=== PATIENT | female | born 1950 | race Caucasian/White ===

== ENCOUNTER 2018-04-16 12:28 | Emergency (ER) | payer OTHER, MEDICARE, SELFPAY ==
[~2018-04-16] VITALS: Ht 149.9 cm; Wt 54.4 kg
[~2018-04-16 12:28] MED LIST: Cheratussin AC118 ML PO; Crutch1 EACH MISC; GABA300 PO; GABA400 PO; LIDOCAINE HCL5 ML; Mucinex600 MG PO; NAPR550 PO; Norco 5-325 Ta1 EACH PO; PROC5 PO; Percocet 5-3251 EACH PO; Prednisone20 MG PO
[2018-04-16] MEDS ORDERED: ASPI325EC PO (13:06)
[2018-04-16] MEDS ORDERED: FISH OIL 1,0001 EAC2 PO (13:07)
== END 2018-04-16 15:32 | disposition home or self-care (01) ==
LOC: ER 12:28
DX: S00.83XA Contusion of other part of head, initial encounter (principal); I10 Essential (primary) hypertension; F17.200 Nicotine dependence, unspecified, uncomplicated; Z79.899 Other long term (current) drug therapy; Z79.82 Long term (current) use of aspirin; W22.8XXA Striking against or struck by other objects, initial encounter
CPT/HCPCS: 70450; 99284

== ENCOUNTER → 2019-10-04 | Outpatient (CLI) | payer MEDICARE ==
[~2019-10-04] MED LIST changes: +ASPI325EC PO; +FISH OIL 1,0001 EAC2 PO
== END | disposition home or self-care (01) ==
LOC: LAB 14:50 → LAB SHORT 14:50
DX: L08.9 Local infection of the skin and subcutaneous tissue, unspecified (principal)
CPT/HCPCS: 87070; 87077; 87147; 87186; 87205

== ENCOUNTER 2021-04-09 03:24 | Observation (INO) | payer MEDICARE ==
[~2021-04-09] VITALS: Ht 149.9 cm; Wt 49.9 kg
[2021-04-09 04:57] LABS: SARS-Cov-2 (COVID-19) PCR, MMC NEGATIVE (NEGATIVE)
--- NOTE | 2021-04-09 06:14 | NUR ---
04/09/21 0614 Velia Henson History, Chart, Medications and Allergies reviewed before start of procedure. Patient confirms NPO status and agrees with scheduled surgery. 3-LEAD EKG REVIEWED WITH PHYSICIAN PRIOR TO START OF PROCEDURE. MONITOR INTACT WITH CONTINUOUS PULSE OXIMETRY AND INTERMITTENT BP. PATIENT DETERMINED TO BE ASA APPROPRIATE FOR PROPOFOL SEDATION PRIOR TO START OF PROCEDURE BY . Bite Block Placed AND REMOVED AT END OF CASE. PER , NO ANESTHESIA CONSULT DONE.
--- NOTE | 2021-04-09 09:41 | NUR ---
DR TABARES AT BEDSIDE SPEAKING TO PT. PT SITTING UP, TAKING SIPS OF WATER.
--- NOTE | 2021-04-09 10:06 | NUR ---
Discharge instructions reviewed with patient. Patient verbalizes understanding. Copy given to patient to take home. PT TOLERATING SIPS OF WATER, PAIN IN THROAT "THE SAME" POST TYLENOL GIVEN. Discharged via wheelchair to private car for ride home. PT VOIDED BEFORE LEAVING.
--- NOTE | 2021-04-09 10:34 | NUR ---
04/09/21 1034 Velia Henson ATTEMPTED FOREIGN BODY REMOVEAL IN ENDO ROOM1, UNABLE TO DO, ANESTHESIA CONSULT DONE PLAN FOR GENERAL. TO OR. CARE BY , SEE PAPER ANESTHESIA RECORD. PT BP WERE ELEVATED T/O CASE. RN , CALLED WHEN CASE OVER AND CHATTE WITH PT'S . ENCOURGED THEM TO F/U WITH PCP FOR HYPERTENSION. MONITOR INTACT WITH CONTINUOUS PULSE OXIMETRY AND INTERMITTENT BP. History, Chart, Medications and Allergies reviewed before start of procedure. Bite Block Placed AND REMOVED AT END OF CASE. #20 SAVORY DILATOR USED.
== END 2021-04-09 11:00 | disposition home or self-care (01) ==
LOC: ER 03:24 → SURS 03:25 → ER 05:43 → SURS 11:00
PROVIDERS: Emergency Medicine; ADMIT Internal Medicine Gastroenterology
DX: T18.128A Food in esophagus causing other injury, initial encounter (principal); Q39.4 Esophageal web; F17.210 Nicotine dependence, cigarettes, uncomplicated; X58.XXXA Exposure to other specified factors, initial encounter; Z96.612 Presence of left artificial shoulder joint; Z98.1 Arthrodesis status; Z86.12 Personal history of poliomyelitis; Z20.822 Contact with and (suspected) exposure to COVID-19
CPT/HCPCS: 96374-59; 99285-25; A9270; J0360; J1100; J1610; J2405; J2704; J7120; U0004

== ENCOUNTER 2021-06-02 13:00 | Emergency (ER) | payer MEDICARE ==
[~2021-06-02] VITALS: Ht 147.3 cm; Wt 50.8 kg
[2021-06-02 13:59] LABS: Hematocrit 43.5 % (33.0-51.0); Mean Corpuscular HGB 32.8 pg (26.0-34.0); Mean Corpuscular HGB Conc 34.5 g/dL (31.5-36.5); Mean Corpuscular Volume 95 fL (80-100); Mean Platelet Volume 9.8 fL (9.1-12.4); Platelet Count 316 K/mm3 (150-400); RDW Coefficient Variation 13.9 % (11.7-14.2); RDW Standard Deviation 48.2 fL (35.1-46.3); Red Blood Cell Count 4.57 M/mm3 (3.80-5.20); White Blood Cell Count 8.84 K/mm3 (4.00-11.30)
[2021-06-02 14:19] LABS: Alanine Aminotransfer (ALT/SGP 22 U/L (12-78); Albumin, Blood 3.8 g/dL (3.4-5.0); Albumin/Globulin Ratio 1.1 (0.8-1.8); Alk Phos 98 U/L (50-136); Anion Gap 4 mmol/L (6-16); Aspartate Aminotrans (AST/SGOT 12 U/L (12-37); Bilirubin, Total 0.5 mg/dL (0.1-1.0); Blood Urea Nitrogen 11 mg/dL (8-24); Bun/Creatinine Ratio 15.2 (12.0-20.0); CO2, Blood 28 mmol/L (21-32); Calcium, Blood 9.1 mg/dL (8.5-10.1); Chloride, Blood 109 mmol/L (98-108); Creatinine, Blood 0.72 mg/dL (0.40-1.00); Globulin, Blood 3.5 g/dL (2.2-4.0); Glomerular Filtration Rate >60 (60-); Glucose, Blood 115 mg/dL (70-99); Potassium, Blood 3.4 mmol/L (3.5-5.5); Sodium, Blood 141 mmol/L (136-145); Total Protein, Blood 7.3 g/dL (6.4-8.2)
[2021-06-02 14:34] LABS: BASOPHILS PERCENT MAN 0 % (0-2); EOSINOPHILS ABSOLUTE MAN 0.08 K/mm3 (0.00-0.68); EOSINOPHILS PERCENT MAN 1 % (0-6); LYMPHOCYTES % ATYPICAL MANUAL 1 % (0-0); LYMPHOCYTES ABSOLUTE MAN 3.71 K/mm3 (0.84-5.20); LYMPHOCYTES PERCENT MAN 41 % (21-46); MONOCYTES ABSOLUTE MAN 0.61 K/mm3 (0.16-1.47); MONOCYTES PERCENT MAN 7 % (4-13); NEUTROPHILS ABSOLUTE MAN 4.42 K/mm3 (1.96-9.15); SEG NEUTROPHILS PERCENT MAN 50 % (41-73); TOTAL CELLS COUNTED 100
== END 2021-06-02 16:17 | disposition home or self-care (01) ==
LOC: ER 13:00
PROVIDERS: Physician Assistant
DX: M54.12 Radiculopathy, cervical region (principal); F17.200 Nicotine dependence, unspecified, uncomplicated
CPT/HCPCS: 36415; 70450; 80053; 85025; 93005; 93010; 96374; 99284-25; J1885

== ENCOUNTER 2021-07-15 10:57 | Inpatient (IN) | payer MEDICARE ==
[~2021-07-15] VITALS: Ht 147.3 cm; Wt 51.0 kg
[2021-07-15 11:44] LABS: BASOPHILS ABSOLUTE AUTO 0.01 K/mm3 (0.00-0.23); BASOPHILS PERCENT AUTO 0 % (0-2); EOSINOPHILS PERCENT AUTO 0 % (0-6); Hematocrit 40.3 % (33.0-51.0); Hemoglobin 14.3 g/dL (11.5-16.0); IMMATURE GRAN ABSOLUTE AUTO 0.01 K/mm3 (0.00-0.10); IMMATURE GRAN PERCENT AUTO 0 % (0-1); LYMPHOCYTES ABSOLUTE AUTO 0.64 K/mm3 (0.84-5.20); LYMPHOCYTES PERCENT AUTO 15 % (21-46); MONOCYTES ABSOLUTE AUTO 0.44 K/mm3 (0.16-1.47); MONOCYTES PERCENT AUTO 11 % (4-13); Mean Corpuscular HGB 32.3 pg (26.0-34.0); Mean Corpuscular HGB Conc 35.5 g/dL (31.5-36.5); Mean Corpuscular Volume 91 fL (80-100); Mean Platelet Volume 11.6 fL (9.1-12.4); NEUTROPHILS ABSOLUTE AUTO 3.07 K/mm3 (1.96-9.15); NEUTROPHILS PERCENT AUTO 74 % (41-73); Platelet Count 146 K/mm3 (150-400); RDW Coefficient Variation 13.2 % (11.7-14.2); RDW Standard Deviation 44.2 fL (35.1-46.3); Red Blood Cell Count 4.43 M/mm3 (3.80-5.20); White Blood Cell Count 4.17 K/mm3 (4.00-11.30)
[2021-07-15 11:59] LABS: Alanine Aminotransfer (ALT/SGP 27 U/L (12-78); Albumin, Blood 2.9 g/dL (3.4-5.0); Albumin/Globulin Ratio 0.8 (0.8-1.8); Alk Phos 68 U/L (50-136); Anion Gap 11 mmol/L (6-16); Aspartate Aminotrans (AST/SGOT 43 U/L (12-37); Bilirubin, Total 0.5 mg/dL (0.1-1.0); Blood Urea Nitrogen 15 mg/dL (8-24); Bun/Creatinine Ratio 22.1 (12.0-20.0); CO2, Blood 22 mmol/L (21-32); Calcium, Blood 8.2 mg/dL (8.5-10.1); Chloride, Blood 99 mmol/L (98-108); Creatinine, Blood 0.68 mg/dL (0.40-1.00); Globulin, Blood 3.5 g/dL (2.2-4.0); Glomerular Filtration Rate >60 (60-); Glucose, Blood 109 mg/dL (70-99); Magnesium, Blood 1.9 mg/dL (1.6-2.4); Potassium, Blood 4.1 mmol/L (3.5-5.5); Sodium, Blood 132 mmol/L (136-145); Total Protein, Blood 6.4 g/dL (6.4-8.2); Troponin I <0.015 ng/mL (0.000-0.040)
[2021-07-16 04:39] LABS: BASOPHILS PERCENT AUTO 0 % (0-2); EOSINOPHILS PERCENT AUTO 0 % (0-6); Hematocrit 36.6 % (33.0-51.0); Hemoglobin 13.1 g/dL (11.5-16.0); IMMATURE GRAN ABSOLUTE AUTO 0.02 K/mm3 (0.00-0.10); IMMATURE GRAN PERCENT AUTO 0 % (0-1); LYMPHOCYTES ABSOLUTE AUTO 0.93 K/mm3 (0.84-5.20); LYMPHOCYTES PERCENT AUTO 17 % (21-46); MONOCYTES ABSOLUTE AUTO 0.26 K/mm3 (0.16-1.47); MONOCYTES PERCENT AUTO 5 % (4-13); Mean Corpuscular HGB 32.3 pg (26.0-34.0); Mean Corpuscular HGB Conc 35.8 g/dL (31.5-36.5); Mean Corpuscular Volume 90 fL (80-100); Mean Platelet Volume 10.8 fL (9.1-12.4); NEUTROPHILS ABSOLUTE AUTO 4.14 K/mm3 (1.96-9.15); NEUTROPHILS PERCENT AUTO 77 % (41-73); Platelet Count 153 K/mm3 (150-400); RDW Standard Deviation 43.5 fL (35.1-46.3); Red Blood Cell Count 4.05 M/mm3 (3.80-5.20); White Blood Cell Count 5.35 K/mm3 (4.00-11.30)
[2021-07-16 05:28] LABS: Alanine Aminotransfer (ALT/SGP 24 U/L (12-78); Albumin, Blood 2.5 g/dL (3.4-5.0); Albumin/Globulin Ratio 0.8 (0.8-1.8); Alk Phos 55 U/L (50-136); Anion Gap 10 mmol/L (6-16); Aspartate Aminotrans (AST/SGOT 24 U/L (12-37); Bilirubin, Total 0.2 mg/dL (0.1-1.0); Blood Urea Nitrogen 10 mg/dL (8-24); Bun/Creatinine Ratio 18.1 (12.0-20.0); CO2, Blood 21 mmol/L (21-32); Calcium, Blood 7.3 mg/dL (8.5-10.1); Chloride, Blood 103 mmol/L (98-108); Creatinine, Blood 0.55 mg/dL (0.40-1.00); Glomerular Filtration Rate >60 (60-); Glucose, Blood 95 mg/dL (70-99); Magnesium, Blood 2.1 mg/dL (1.6-2.4); Potassium, Blood 3.1 mmol/L (3.5-5.5); Sodium, Blood 134 mmol/L (136-145); Total Protein, Blood 5.5 g/dL (6.4-8.2)
--- NOTE | 2021-07-16 07:19 | NUR ---
SHIFT SUMMARY PATIENT IS RESTING IN BED COMFORTABLY. BED IS IN LOW POSITION. BED EXIT ALARM IS ON. CALL LIGHT IS IN REACH. PATIENT WAS FEBRILE SEE EMAR FOR INTERVENTION. DILTIAZEM DRIP IS STILL INFUSING. REPORT GIVEN TO DAY SHIFT RN.
--- NOTE | 2021-07-16 10:07 | NUR ---
CARDIZEM GTT OFF AT THIS TIME. TOPROL XL WAS GIVEN 2 HOURS AGO. HEART RATE IN 90S, ATRIAL FIBRILLATION.
--- NOTE | 2021-07-16 11:01 | NUR ---
Call to Topher, of the pt to give an update. He said that he would update the rest of the family on the pt's condition.
--- NOTE | 2021-07-16 18:19 | NUR ---
Spoke with Daughter Waleska [phone] and gave her an update as well as the direct phone number to call in to the pt's room.
--- NOTE | 2021-07-16 18:21 | NUR ---
The pt continues to have ongoing nausea without vomiting. She was asking for jello and apple juice this evening, which she seems to be tolerating so far. OOB to bathroom today, stand by assistance given by PEYTON Juarez. Still tolerating room air, with good spo2. Atrial fibrillation, rate controlled with oral metoprolol. Blood pressure stable. No other complaints or needs voiced by the patient.
--- NOTE | 2021-07-16 23:09 | NUR ---
PATIENT WAS TRANSFERED TO ROOM 363 AT 2243. REPORT WAS GIVEN TO EDE TODD.
[2021-07-17 05:43] LABS: Albumin, Blood 2.4 g/dL (3.4-5.0); Anion Gap 8 mmol/L (6-16); Blood Urea Nitrogen 7 mg/dL (8-24); Bun/Creatinine Ratio 11.7 (12.0-20.0); CO2, Blood 22 mmol/L (21-32); Calcium, Blood 7.7 mg/dL (8.5-10.1); Chloride, Blood 109 mmol/L (98-108); Glomerular Filtration Rate >60 (60-); Glucose, Blood 84 mg/dL (70-99); Magnesium, Blood 2.1 mg/dL (1.6-2.4); Phosphorus, Blood 1.6 mg/dL (2.5-4.9); Potassium, Blood 3.4 mmol/L (3.5-5.5); Sodium, Blood 139 mmol/L (136-145)
--- NOTE | 2021-07-17 06:19 | NUR ---
SHIFT SUMMARRY PATIENT TRANSFERED FROM PCU ARRIVED AT ABOUT 9PM.SHE IS ALERT AND ORIENTED X4. VSS, LSC AND BSX4. ONE ASSIST TO THE BATHROOM WITH IV POLE. NS RUNNING JD620CS/HR. NO SIGN OF RESPIRATORY OR CARDIAC DISTRESS THIS SHIFT. PATIENT REQUESTED PRN GUAIFENESIN WITH CODEINE THIS MORNING FOR COUGH WITH GOOD EFFECTS.
--- NOTE | 2021-07-17 18:53 | NUR ---
MS. KAHLIL MARTÍNEZ IS A VERY PLEASANT LADY AND SHE IS ALERT/ORIENTED X 4. SHE HAS A COUGH THAT IS PRODUCTIVE AT TIME. SHE HAS RECEIVED MEDICATIONS FOR COUGH TODAY X 2. FIRST DOSE OF COUGH MEDICATION WAS BENEFICIAL. SHE COMPLAINED OF PAIN TO RIGHT SHOULDER BLADE THIS AM. SHE WAS ENCOURAGED TO REPOSITION AND GIVEN TYLENOL. LUNGS ARE CLEAR AND SHE HAS BEEN 95% ON RA. AT APPROX 1700, SHE COMPLAINED OF SOB. HER 02 SAT WERE 94 -95%. NC 2L WAS APPLIED WITH 02 REMAINING AT 95% AND HER LUNGS WERE CLEAR. NS IV CONTINUES AT 100M/HR ORDERED. SHE HAS BEEN OUT OF BED TO BATHROOM WITH ASSIST X 1 TODAY. SHE DOES NOT APPEAR TO BE IN ACUTE DISTRESS. SHE REPORTS SHE IS EXPECTED TO BE DISCHARGED TOMORROW. SHE HAD AN UNEVENTFUL DAY.
[2021-07-18 04:52] LABS: BASOPHILS ABSOLUTE AUTO 0.02 K/mm3 (0.00-0.23); BASOPHILS PERCENT AUTO 0 % (0-2); EOSINOPHILS PERCENT AUTO 0 % (0-6); Hematocrit 36.9 % (33.0-51.0); Hemoglobin 12.9 g/dL (11.5-16.0); IMMATURE GRAN ABSOLUTE AUTO 0.02 K/mm3 (0.00-0.10); IMMATURE GRAN PERCENT AUTO 0 % (0-1); LYMPHOCYTES ABSOLUTE AUTO 1.47 K/mm3 (0.84-5.20); LYMPHOCYTES PERCENT AUTO 27 % (21-46); MONOCYTES ABSOLUTE AUTO 0.32 K/mm3 (0.16-1.47); MONOCYTES PERCENT AUTO 6 % (4-13); Mean Corpuscular HGB 31.8 pg (26.0-34.0); Mean Corpuscular Volume 91 fL (80-100); Mean Platelet Volume 10.9 fL (9.1-12.4); NEUTROPHILS ABSOLUTE AUTO 3.72 K/mm3 (1.96-9.15); NEUTROPHILS PERCENT AUTO 67 % (41-73); Platelet Count 219 K/mm3 (150-400); RDW Coefficient Variation 13.6 % (11.7-14.2); RDW Standard Deviation 45.8 fL (35.1-46.3); Red Blood Cell Count 4.06 M/mm3 (3.80-5.20); White Blood Cell Count 5.55 K/mm3 (4.00-11.30)
[2021-07-18 05:12] LABS: Alanine Aminotransfer (ALT/SGP 26 U/L (12-78); Albumin, Blood 2.4 g/dL (3.4-5.0); Albumin/Globulin Ratio 0.8 (0.8-1.8); Alk Phos 58 U/L (50-136); Anion Gap 8 mmol/L (6-16); Aspartate Aminotrans (AST/SGOT 23 U/L (12-37); Bilirubin, Total 0.3 mg/dL (0.1-1.0); Blood Urea Nitrogen 8 mg/dL (8-24); Bun/Creatinine Ratio 13.8 (12.0-20.0); CO2, Blood 20 mmol/L (21-32); Calcium, Blood 7.9 mg/dL (8.5-10.1); Chloride, Blood 110 mmol/L (98-108); Creatinine, Blood 0.58 mg/dL (0.40-1.00); Globulin, Blood 2.9 g/dL (2.2-4.0); Glomerular Filtration Rate >60 (60-); Glucose, Blood 93 mg/dL (70-99); Magnesium, Blood 1.6 mg/dL (1.6-2.4); Phosphorus, Blood 2.3 mg/dL (2.5-4.9); Potassium, Blood 3.8 mmol/L (3.5-5.5); Sodium, Blood 138 mmol/L (136-145); Total Protein, Blood 5.3 g/dL (6.4-8.2)
--- NOTE | 2021-07-18 06:33 | NUR ---
SHIFT SUMMARRY PATIENT QUIET IN HER ROOM MOST OF THE NIGHT. ASSISTED O THE BATHROOM TWICE. HR REPORTED ON TELE IN THE 120S AND 130S. MD CALLED. 5MG IV LOPRESSOR ORDEREDAND ADMINISTERED WITH MINIMAL EFFECTS HR STILL IN THE 120S ON TELE AND 98 ON VS MACHINE. MD NOTIFIED. ORDERS TO DC FLUIDS (NS DCED0. . PATIENT VOMITED SMALL AMOUNTS OF SPUTUM. IV 4MG ZOPHRAN GIVEN WITH GOOD EFFECTS.
--- NOTE | 2021-07-18 06:47 | NUR ---
NOTIFIED HOSPITALIST OF PATIENT'S ELEVATED HEART RATE AND BLOOD PRESSURE. AT THIS TIME NO NEW ORDERS GIVEN. IVF HAD BEEN STOPPED, PER HOSPITALIST GIVE IT TIME TO SEE IF HEART RATE DECREASES. PT AT THIS POINT IS ASYMPTOMATIC.
--- NOTE | 2021-07-18 17:57 | NUR ---
AT BEGINNING OF SHIFT, ADVERTISEMENT DISTRIBUTOR REPORTED THE PATIENTS B/P WAS 186/118, PER [facility] HEART RATE WAS 130'S. DR. LUCIANO WAS NOTIFIED. HYDRALAZINE IV WAS ORDERED. SHE C/O OD SOB ON 2 L WITH O2 SAT OF 94 TO 95%. O2 WAS INCREASED TO 4L WITH O2 SAT OF 95%. APPROX ONE HOUR LATER, PATIENT HAD N/V AND ZOFRAN WAS ADMINISTERED. RECEIVED A CALLED FROM [facility] WITH REPORTED HR OF 160 TO 170. AFTER WAITING A FEW MINS AFTER PT SETTLED. HR CONTINUED IN 160'S. DR. LUCIANO WAS NOTIFIED AND HE ORDERED LOPRESSOR IV. LOPRESSOR WAS ADMIN AT APPROX 1045 WITH HR IN 136 PER [facility], B/P WAS 152/100. DR. LUCIANO PRESENTED TO THE FLOOR AND ORDERED CARDIZEM 30MG TID WITH NOW DOSE AND ORDERED PHENERGAN 12.5 PRN. LATE THIS AFTERNOON, THE PATIENT'S BLOOD PRESSURE WAS 172/99 WITH HR 106 - 120'S. DR. LUCIANO WAS NOTIFIED AND ORDERS TO START CLONIDINE 0.2MG PRN WITH DOSE TO BE GIVEN. FIRST DOSE OF CLONIDINE WAS GIVEN TO THE PATIENT AT APPROX 1730. PT TOOK OFF O2 NC AND REQUEST FACE MASK. O2 SAT 91/92 ON RA. WILL CONTINUE TO MONITOR.
[2021-07-19 04:37] LABS: BASOPHILS ABSOLUTE AUTO 0.01 K/mm3 (0.00-0.23); BASOPHILS PERCENT AUTO 0 % (0-2); EOSINOPHILS ABSOLUTE AUTO 0.01 K/mm3 (0.00-0.68); EOSINOPHILS PERCENT AUTO 0 % (0-6); Hematocrit 36.3 % (33.0-51.0); Hemoglobin 12.6 g/dL (11.5-16.0); IMMATURE GRAN ABSOLUTE AUTO 0.03 K/mm3 (0.00-0.10); IMMATURE GRAN PERCENT AUTO 1 % (0-1); LYMPHOCYTES ABSOLUTE AUTO 1.53 K/mm3 (0.84-5.20); LYMPHOCYTES PERCENT AUTO 25 % (21-46); MONOCYTES ABSOLUTE AUTO 0.43 K/mm3 (0.16-1.47); MONOCYTES PERCENT AUTO 7 % (4-13); Mean Corpuscular HGB Conc 34.7 g/dL (31.5-36.5); Mean Corpuscular Volume 92 fL (80-100); Mean Platelet Volume 10.8 fL (9.1-12.4); NEUTROPHILS ABSOLUTE AUTO 4.05 K/mm3 (1.96-9.15); NEUTROPHILS PERCENT AUTO 67 % (41-73); Platelet Count 268 K/mm3 (150-400); RDW Coefficient Variation 13.5 % (11.7-14.2); RDW Standard Deviation 46.5 fL (35.1-46.3); Red Blood Cell Count 3.94 M/mm3 (3.80-5.20); White Blood Cell Count 6.06 K/mm3 (4.00-11.30)
[2021-07-19 05:02] LABS: Anion Gap 7 mmol/L (6-16); Blood Urea Nitrogen 11 mg/dL (8-24); Bun/Creatinine Ratio 16.4 (12.0-20.0); CO2, Blood 24 mmol/L (21-32); Calcium, Blood 8.4 mg/dL (8.5-10.1); Chloride, Blood 109 mmol/L (98-108); Creatinine, Blood 0.67 mg/dL (0.40-1.00); Glomerular Filtration Rate >60 (60-); Glucose, Blood 89 mg/dL (70-99); Phosphorus, Blood 2.5 mg/dL (2.5-4.9); Potassium, Blood 4.1 mmol/L (3.5-5.5); Sodium, Blood 140 mmol/L (136-145)
--- NOTE | 2021-07-19 05:57 | NUR ---
END OF SHIFT SUMMARY: Pt got SOB and put 2LNC. Satting >94% only one complaint of nausea, medicated per eMAR. No vommiting episodes over night. Pt A&Ox4. call light withing reach, bed in lowest position.
--- NOTE | 2021-07-19 06:04 | NUR ---
END OF SHIFT SUMMARY: Pt A&Ox4. Pt woke up c/o 07/05 general pain. MD notified. Home [facility] restarted. Pt wakws up and holds conversation. Swallows pills well with sip of water. Sates she has no needs/wants at this time. Chakraborty draining well with gravity. chakraborty care perfomed. Call light within reach.
[2021-07-19] MEDS ORDERED: ACET325 PO (12:34)
[2021-07-19] MEDS ORDERED: ASCO500 PO (12:34)
[2021-07-19] MEDS ORDERED: CALCIUM CARBON500 M1 PO (12:35)
[2021-07-19] MEDS ORDERED: Guaifenesin Wit10 ML PO (12:35)
[2021-07-19] MEDS ORDERED: DILT60ER PO (12:36)
[2021-07-19] MEDS ORDERED: POTCHL20ER PO (12:37)
[2021-07-19] MEDS ORDERED: ONDA4ODT MM (12:37)
[2021-07-19] MEDS ORDERED: METO50 PO (12:37)
[2021-07-19] MEDS ORDERED: XARELTO15 M1 PO (12:40)
[2021-07-19] MEDS ORDERED: ZINC220 PO (12:41)
[2021-07-19] MEDS ORDERED: VISBIOME 112.51 EACH PO (12:41)
[2021-07-19] MEDS ORDERED: VITAMIN D31000 UNI1 PO (12:41)
--- NOTE | 2021-07-19 13:53 | NUR ---
PATIENT TO BE DISCHARGED PER ORDERS ALL DISCHARGE EDUCATION/PAPERWORK PROVIDED INCLUDING MEDICATIONS DISEASE PROCESS MANAGEMENT AND FOLLOW UP INCLUDING INFO REGARDING OBTAINING A PCP TO INITIATE HOME CARE UPON DC PATIENT A&OX4 VERBALIZES GOOD UNDERSTANDING OF ALL DISCHARE INSTRUCTIONS STATING [place] SHE IS A NURSE UP AD RAI WITH STEADY GAIT INDEPENDENT WITH ADLS REMIANS ON RA NO SOB NO CONNER DENIES PAIN OR DISCOMFORT CURRENTLY WAITING ON TRANSPORTATION
--- NOTE | 2021-07-19 14:30 | NUR ---
PATIENT DISCHARGED TO HOME AT THIS TIME TRANSPORTED OFF OF UNIT IN WHEELCHAIR BY [facility] DAUGHTER HERE TO TRANSPORT HOME IN PERSONAL VEHICLE NO DISTRESS NOTED
== END 2021-07-19 14:31 | disposition home health service (06) | DRG 177 ==
LOC: ER 10:57 → SURS 10:58 → ERHOLD 10:58 → SURS 18:11 → MEDS 07-16 22:45 → ENPENDDIS 07-19 10:46 → MEDS 07-19 14:31
PROVIDERS: Emergency Medicine; Family Medicine; Internal Medicine; Nurse Practitioner Acute Care; ADMIT Internal Medicine
PROC: XW033G6 Introduction of REGN-COV2 Monoclonal Antibody into Peripheral Vein, Percutaneous Approach, New Technology Group 6 (ICD-10-PCS; principal; 2021-07-15)
PROC: 8E0ZXY6 Isolation (ICD-10-PCS; 2021-07-16)
DX: U07.1 COVID-19 (principal); J12.82 Pneumonia due to coronavirus disease 2019; E87.1 Hypo-osmolality and hyponatremia; I48.0 Paroxysmal atrial fibrillation; E86.0 Dehydration; E87.6 Hypokalemia; D69.59 Other secondary thrombocytopenia; E83.39 Other disorders of phosphorus metabolism; Z96.612 Presence of left artificial shoulder joint; Z98.890 Other specified postprocedural states; Z90.710 Acquired absence of both cervix and uterus; Z98.1 Arthrodesis status
CPT/HCPCS: 36415; 71045; 80048; 80053; 80069; 82947; 83735; 83880; 84100; 84443; 84484; 85025; 86140; 93005; 93010; 93306; 94761; 96365; 96366; 96368; 96375; 96376; 97162; 97530; 99285-25; A9270; G0378; J0360; J2405; J2550; J3475; J3480; J7030; M0243; Q0243

== ENCOUNTER 2022-09-22 10:42 | Inpatient (IN) | payer MEDICARE ==
[~2022-09-22] VITALS: Ht 147.3 cm; Wt 53.5 kg
[~2022-09-22 10:42] MED LIST changes: +ACET325 PO; +ASCO500 PO; +CALCIUM CARBON500 M1 PO; +DILT60ER PO; +Guaifenesin Wit10 ML PO; +METO50ER PO; +ONDA4ODT MM; +POTCHL20ER PO; +VISBIOME 112.51 EACH PO; +VITAMIN D31000 UNI1 PO; +XARELTO15 M1 PO; +ZINC220 PO
[2022-09-22 11:37] LABS: BASOPHILS ABSOLUTE AUTO 0.08 K/mm3 (0.00-0.23); BASOPHILS PERCENT AUTO 1 % (0-2); EOSINOPHILS PERCENT AUTO 1 % (0-6); Hematocrit 38.3 % (33.0-51.0); Hemoglobin 13.5 g/dL (11.5-16.0); IMMATURE GRAN ABSOLUTE AUTO 0.02 K/mm3 (0.00-0.10); IMMATURE GRAN PERCENT AUTO 0 % (0-1); LYMPHOCYTES ABSOLUTE AUTO 2.07 K/mm3 (0.84-5.20); LYMPHOCYTES PERCENT AUTO 24 % (21-46); MONOCYTES ABSOLUTE AUTO 0.65 K/mm3 (0.16-1.47); MONOCYTES PERCENT AUTO 8 % (4-13); Mean Corpuscular HGB 32.8 pg (26.0-34.0); Mean Corpuscular HGB Conc 35.2 g/dL (31.5-36.5); Mean Corpuscular Volume 93 fL (80-100); Mean Platelet Volume 9.8 fL (9.1-12.4); NEUTROPHILS ABSOLUTE AUTO 5.78 K/mm3 (1.96-9.15); NEUTROPHILS PERCENT AUTO 67 % (41-73); Platelet Count 281 K/mm3 (150-400); RDW Coefficient Variation 13.7 % (11.7-14.2); RDW Standard Deviation 46.9 fL (35.1-46.3); Red Blood Cell Count 4.12 M/mm3 (3.80-5.20)
[2022-09-22 12:08] LABS: Albumin, Blood 3.8 g/dL (3.4-5.0); Bilirubin, Total 0.5 mg/dL (0.1-1.0); Bun/Creatinine Ratio 25.8 (12.0-20.0); Calcium, Blood 9.7 mg/dL (8.5-10.1); Creatinine, Blood 0.85 mg/dL (0.40-1.00); Globulin, Blood 3.7 g/dL (2.2-4.0); Potassium, Blood 5.6 mmol/L (3.5-5.5); Total Protein, Blood 7.5 g/dL (6.4-8.2)
[2022-09-22] MEDS ORDERED: ATOR10 PO (13:05)
[2022-09-22] MEDS ORDERED: CELEBREX200 MG PO (13:06)
[2022-09-22] MEDS ORDERED: OXYB5 PO (13:07)
[2022-09-22 16:59] LABS: Anti-Xa UFH, PHA Monitoring <0.10 IU/mL; International Normalized Ratio 0.98; Prothrombin Time Results 10.3 Sec (9.7-11.5)
[2022-09-22] MEDS ORDERED: TERB250 PO (18:02)
--- NOTE | 2022-09-23 06:25 | NUR ---
COURT BAILIFF SUMMARY PT IS ALERT AND ORIENTED COMMUNICATING APPRORIATELY W STAFF. PT HAS REPORTED MILD TO MODERATE CHEST PAIN THROUHOUT THE NIGHT WHICH HAS BEEN RELIEVED W IV PAIN MEDICATION. PT'S BP ELEVATED THIS SHIFT REQUIRING PRN HYDRALAZINE AND LABETOLOL THIS SHIFT. TELE HAS SHOWN SR IN THE 80'S THIS SHIFT. O2 SATS >92% ON RM AIR THIS SHIFT. HEPARIN GTT RUNNINING AND PT NPO SINCE MIDNIGHT FOR POSSIBLE PROCEDURE. WILL REPORT TO ONCOMING RN.
--- NOTE | 2022-09-23 09:49 | NUR ---
UPDATE: PT OUT FOR NEUROSCIENCE DIRECTOR NA AT [id number].
--- NOTE | 2022-09-23 12:32 | NUR ---
UPDATE: PT RETURNED FROM TRAVELING ELECTRICIAN AT 1030. NO INTERVENTIONS NEEDED. TR BAND IN PLACE INFLATED TO 12ML. VSS. WILL CONTINUE TO MONITOR.
--- NOTE | 2022-09-23 13:39 | NUR ---
UPDATE: TR BAND FULLY RECOVERED @1340. NO SIGNS OF OOZING OR HEMATOMA. ARMBOARD IN PLACE. VSS. WILL CONTINUE TO MONITOR.
--- NOTE | 2022-09-23 16:17 | NUR ---
SHIFT SUMMARY: PT REMAINS ALERT AND ORIENTED X4, ABLE TO FOLLOW COMMANDS AND MAKE NEEDS KNOWN. BP AND HR STABLE. AFEBRILE. SATING >95% ON RA. TR BAND FULLY RECOVERED, NO SIGNS OF OOZING OR HEMATOMA, ARMBOARD IN PLACE. NO COMPLAINTS OF CP/PRESSURE AT THIS TIME. PT ABLE TO AMBULATE WITH ONE PERSON ASSIST TO AND FROM BATHROOM. NO BM. PLAN FOR D/C IN AM. BED IN LOW, CALL LIGHT IN REACH. WILL REPORT TO ONCOMING RN.
--- NOTE | 2022-09-24 05:31 | NUR ---
WINDOW SHADE RING COVERER SUMMARY PT IS ALERT AND ORIENTED COMMUNICATING APPROPRIATELY W STAFF THIS SHIFT. PT HAS DENIED ANY CP OR PRESSURE THIS SHIFT. PT DID REPORT MODERATE ANXIETY AT THE START OF THE SHIFT REGARDING RETURNING HOME AND HAVING THE CHEST PAIN RETURN. THIS RN LISTENED TO THE PT'S CONCERNS AND EDUCATED THE PT ON TYPE 2 ISCHEMIA AND THE INTERVENTIONS THAT MAY BE PRESENTED TO HER TO TREAT IT. PT'S BP ELEVATED THIS SHIFT BUT MUCH BETTER THEN PREVIOUS NIGHT. O2 SATS >92% ON RM AIR. R RADIAL SITE C/D/I W NO S/S OF SWELLING, BLEEDING OR TENDERNESS. WILL REPORT TO ONCOMING RN.
[2022-09-24] MEDS ORDERED: ASPI81CH PO (15:30)
[2022-09-24] MEDS ORDERED: BUSP5 PO (15:31)
[2022-09-24] MEDS ORDERED: OMEP20ER PO (15:32)
[2022-09-24] MEDS ORDERED: Isosorbide Mono30 MG PO (15:33)
[2022-09-24] MEDS ORDERED: NITR.4SL SL (15:34)
--- NOTE | 2022-09-24 17:00 | NUR ---
1555 - PT DISCHARGED VIA CAR TO HOME WITH FAMILY PROVIDING TRANSPORT. ALL QUESTIONS ANSWERED TO SATISFACTION AND ALL DISCHARGE INSTRUCTIONS WENT OVER AND SENT WITH PATIENT. IV REMOVED AND PT LEFT WITH ALL BELONGINGS
== END 2022-09-24 16:00 | disposition home or self-care (01) | DRG 282 ==
LOC: ER 10:42 → ERHOLD 10:43 → PCU 15:26
PROVIDERS: Nurse Practitioner Acute Care; Physician Assistant; ADMIT Internal Medicine
PROC: 4A023N7 Measurement of Cardiac Sampling and Pressure, Left Heart, Percutaneous Approach (ICD-10-PCS; principal; 2022-09-23)
PROC: B2111ZZ Fluoroscopy of Multiple Coronary Arteries using Low Osmolar Contrast (ICD-10-PCS; 2022-09-23)
DX: I25.10 Atherosclerotic heart disease of native coronary artery without angina pectoris (principal); I21.A1 Myocardial infarction type 2; I16.0 Hypertensive urgency; I10 Essential (primary) hypertension; I48.0 Paroxysmal atrial fibrillation; F41.9 Anxiety disorder, unspecified; Z90.710 Acquired absence of both cervix and uterus; Z98.890 Other specified postprocedural states; Z79.899 Other long term (current) drug therapy; Z86.16 Personal history of COVID-19
CPT/HCPCS: 36415; 71046; 71260; 76937; 80053; 83690; 84484; 85025; 85347; 85379; 85520; 85610; 85730; 93005; 93010; 93306; 93454; 93922; 93970; 99152; 99153; A9270; C1769; C1887; C1894; C9113; J0360; J0780; J1644; J2060; J2250; J2405; J3010; J7030; J7050; Q9967

== ENCOUNTER 2023-10-11 08:42 | Emergency (ER) | payer MEDICARE ==
[~2023-10-11] VITALS: Ht 147.3 cm; Wt 49.9 kg
[~2023-10-11 08:42] MED LIST changes: +ASPI81CH PO; +ATOR10 PO; +BUSP5 PO; +CELEBREX200 MG PO; +Isosorbide Mono30 MG PO; +LANSOPRAZOLE30 MG PO; +LISINOPRIL-HCT1 EAC1 PO; +MELO7.5 PO; +NITR.4SL SL; +OMEP20ER PO; +OXYB5 PO; +TERB250 PO; +XARELTO20 M1 PO
[2023-10-11 09:52] LABS: BASOPHILS ABSOLUTE AUTO 0.07 K/mm3 (0.00-0.23); BASOPHILS PERCENT AUTO 1 % (0-2); EOSINOPHILS ABSOLUTE AUTO 0.09 K/mm3 (0.00-0.68); EOSINOPHILS PERCENT AUTO 1 % (0-6); Hematocrit 33.7 % (33.0-51.0); Hemoglobin 11.7 g/dL (11.5-16.0); IMMATURE GRAN ABSOLUTE AUTO 0.01 K/mm3 (0.00-0.10); IMMATURE GRAN PERCENT AUTO 0 % (0-1); LYMPHOCYTES ABSOLUTE AUTO 2.08 K/mm3 (0.84-5.20); LYMPHOCYTES PERCENT AUTO 23 % (21-46); MONOCYTES ABSOLUTE AUTO 0.81 K/mm3 (0.16-1.47); MONOCYTES PERCENT AUTO 9 % (4-13); Mean Corpuscular HGB 30.3 pg (26.0-34.0); Mean Corpuscular HGB Conc 34.7 g/dL (31.5-36.5); Mean Corpuscular Volume 87 fL (80-100); Mean Platelet Volume 9.6 fL (9.1-12.4); NEUTROPHILS ABSOLUTE AUTO 5.93 K/mm3 (1.96-9.15); NEUTROPHILS PERCENT AUTO 66 % (41-73); Platelet Count 350 K/mm3 (150-400); RDW Coefficient Variation 13.6 % (11.7-14.2); RDW Standard Deviation 42.9 fL (35.1-46.3); Red Blood Cell Count 3.86 M/mm3 (3.80-5.20); White Blood Cell Count 8.99 K/mm3 (4.00-11.30)
[2023-10-11 10:03] LABS: Albumin, Blood 3.6 g/dL (3.4-5.0); Bilirubin, Total 0.3 mg/dL (0.1-1.0); Bun/Creatinine Ratio 16.9 (12.0-20.0); Calcium, Blood 9.4 mg/dL (8.5-10.1); Creatinine, Blood 0.89 mg/dL (0.40-1.00); Globulin, Blood 3.7 g/dL (2.2-4.0); Total Protein, Blood 7.3 g/dL (6.4-8.2)
[2023-10-11 10:49] LABS: Source, Urine Clean Catch
[2023-10-11 11:00] LABS: Appearance, Urine Clear (Clear); Bilirubin, Urine Neg (Neg); Blood, Urine Neg (Neg); Color, Urine Yellow (P-Yellow); Glucose Qualitative, Urine Neg (Neg); Ketones, Urine Neg (Neg); Leukocyte Esterase, Urine Neg (Neg); Nitrite, Urine Neg (Neg); Protein, Urine Neg (Neg); Urobilinogen, Urine NORM (Normal)
[2023-10-11 11:23] VITALS: BP 152/80
[2023-10-11] MEDS ORDERED: MAGCIT300 PO (11:24)
[2023-10-11] MEDS ORDERED: BISA5EC PO (11:24)
[2023-10-11] MEDS ORDERED: OXYC5 PO (11:24)
== END 2023-10-11 11:28 | disposition home or self-care (01) ==
LOC: ER 08:42
PROVIDERS: Emergency Medicine
DX: K59.00 Constipation, unspecified (principal); F17.210 Nicotine dependence, cigarettes, uncomplicated
CPT/HCPCS: 71046; 80053; 81003; 83690; 85025; 93005; 93010; 96361; 96374; 96375; 99284-25; J1170; J1885; J2405; J7030

== ENCOUNTER 2024-04-16 09:39 | Emergency (ER) | payer MEDICARE ==
[~2024-04-16] VITALS: Ht 147.3 cm; Wt 48.1 kg
[~2024-04-16 09:39] MED LIST changes: +BISA5EC PO; +MAGCIT300 PO; +OXYC5 PO
[2024-04-16 10:07] LABS: BASOPHILS ABSOLUTE AUTO 0.09 K/mm3 (0.00-0.23); BASOPHILS PERCENT AUTO 0 % (0-2); EOSINOPHILS ABSOLUTE AUTO 0.21 K/mm3 (0.00-0.68); EOSINOPHILS PERCENT AUTO 1 % (0-6); Hematocrit 31.3 % (33.0-51.0); Hemoglobin 10.4 g/dL (11.5-16.0); IMMATURE GRAN ABSOLUTE AUTO 0.08 K/mm3 (0.00-0.10); IMMATURE GRAN PERCENT AUTO 0 % (0-1); LYMPHOCYTES ABSOLUTE AUTO 2.32 K/mm3 (0.84-5.20); LYMPHOCYTES PERCENT AUTO 11 % (21-46); MONOCYTES ABSOLUTE AUTO 1.53 K/mm3 (0.16-1.47); MONOCYTES PERCENT AUTO 7 % (4-13); Mean Corpuscular HGB 31.7 pg (26.0-34.0); Mean Corpuscular HGB Conc 33.2 g/dL (31.5-36.5); Mean Corpuscular Volume 95 fL (80-100); Mean Platelet Volume 9.8 fL (9.1-12.4); NEUTROPHILS ABSOLUTE AUTO 17.24 K/mm3 (1.96-9.15); NEUTROPHILS PERCENT AUTO 80 % (41-73); Platelet Count 331 K/mm3 (150-400); RDW Coefficient Variation 13.5 % (11.7-14.2); RDW Standard Deviation 47.8 fL (35.1-46.3); Red Blood Cell Count 3.28 M/mm3 (3.80-5.20); White Blood Cell Count 21.47 K/mm3 (4.00-11.30)
[2024-04-16] MEDS ORDERED: Morphine Sulfate 4 MG/1 ML Injection IV ONE ×2 (10:20→14:35)
[2024-04-16 10:30] LABS: Albumin, Blood 3.7 g/dL (3.4-5.0); Albumin/Globulin Ratio 1.1 (0.8-1.8); Bilirubin, Total 0.6 mg/dL (0.1-1.0); Bun/Creatinine Ratio 21.1 (12.0-20.0); Calcium, Blood 9.9 mg/dL (8.5-10.1); Creatinine, Blood 0.95 mg/dL (0.40-1.00); Globulin, Blood 3.3 g/dL (2.2-4.0)
[2024-04-16] MEDS ORDERED: GLUCHON PO (11:27)
[2024-04-16 11:46] LABS: Source, Urine Clean Catch
[2024-04-16 11:49] LABS: Appearance, Urine Clear (Clear); Bilirubin, Urine Neg (Neg); Blood, Urine Neg (Neg); Color, Urine Yellow (P-Yellow); Glucose Qualitative, Urine Neg (Neg); Ketones, Urine Neg (Neg); Leukocyte Esterase, Urine Neg (Neg); Nitrite, Urine Neg (Neg); Protein, Urine Neg (Neg); Urobilinogen, Urine NORM (Normal)
[2024-04-16] MEDS ORDERED: OXYC5 PO (14:34)
[2024-04-16 15:00] VITALS: BP 125/73
== END 2024-04-16 15:12 | disposition home or self-care (01) ==
LOC: ER 09:39
PROVIDERS: Physician Assistant
DX: R10.9 Unspecified abdominal pain (principal); Z79.899 Other long term (current) drug therapy; Z79.82 Long term (current) use of aspirin; F17.210 Nicotine dependence, cigarettes, uncomplicated
CPT/HCPCS: 71046; 74176; 76705; 80053; 81003; 83690; 85025; 96374; 96376; 99284-25; J2270

== ENCOUNTER 2024-06-29 06:53 | Observation (INO) | payer MEDICARE ==
[2024-06-29] VITALS (19 sets, daily range): BP systolic 88–209; BP diastolic 45–94
[~2024-06-29] VITALS: Ht 147.3 cm; Wt 45.4 kg
[~2024-06-29 06:53] MED LIST changes: +GLUCHON PO
[2024-06-29] MEDS ORDERED: BACL10 PO (08:17)
[2024-06-29] MEDS ORDERED: OXYB5 PO (08:18)
[2024-06-29] MEDS ORDERED: BUPR150ER PO (08:18)
[2024-06-29] MEDS ORDERED: NITR.4SL SL (08:19)
[2024-06-29] MEDS ORDERED: Aspir 8181 MG PO (08:19)
[2024-06-29] MEDS ORDERED: POTA10T PO (08:20)
[2024-06-29] MEDS ORDERED: Midazolam HCl 1MG / ML 2ML Vial ONE (11:53)
[2024-06-29] MEDS ORDERED: NS 1,000 ML IV ONE ×2 (11:53→11:54)
[2024-06-29] MEDS ORDERED: FentaNYL Citrate 50 MCG/ML 2 ML Injection ONE (11:53)
[2024-06-29] MEDS ORDERED: Heparin Sodium 1000 Units/ML 10ML MDV ONE (11:54)
[2024-06-29] MEDS ORDERED: Verapamil HCL 2.5 MG/ML 2ML Injection ONE (11:54)
[2024-06-29] MEDS ORDERED: Nitroglycerin 2 MG/20 ML BTL ONE (11:55)
[2024-06-29] MEDS ORDERED: NS 250 ML IV ONE (11:55)
[2024-06-29] MEDS ORDERED: HydrALAZINE HCl 20 MG / ML 1ML Vial ONE (12:35)
--- NOTE | 2024-06-29 14:27 | NUR ---
pt back to recovery from lab. pt a&o. at bedside. groin and radial site soft and non-tender per pt. no bleeding noted. pt given water per request.
[2024-06-29] MEDS ORDERED: Acetaminophen 325 MG TABLET ONE (15:09)
--- NOTE | 2024-06-29 15:19 | NUR ---
PATIENT REPOSITIONED SEVERAL TIMES IN THE BED. HOB ELEVATED 30 DEGREES. PATIENT GIVEN 650 MG PO TYLENOL FOR LOWER BACK PAIN. PATIENT NOW RESTING COMFORTABLY. WILL CONTINUE TO MONITOR. R GROIN SITE C/D/I SOFT/NONTENDER, NO EVIDENCE OF BLEEDING. R RADIAL SITE 2 CC OF AIR REMOVED. SITE C/D/I SOFT/NONTENDER, NO EVIDENCE OF BLEEDING. VSS ON RA
--- NOTE | 2024-06-29 15:36 | NUR ---
pt given lunch tray. helping pt eat. groin site and radial site are both soft and non-tender per pt. no bleeding noted.
--- NOTE | 2024-06-29 15:47 | NUR ---
pt finished eating lunch. groin site and radial site soft and non-tender per pt. no bleeding noted. 2 cc removed from tr band.
--- NOTE | 2024-06-29 16:04 | NUR ---
tr band fully deflated. site soft and non-tender per pt. groin site soft and non-tender per pt. no bleeding noted at either site.
[2024-06-29] MEDS ORDERED: Ondansetron HCl 2 MG / ML 2ML Vial ONE (16:32)
[2024-06-29] MEDS ORDERED: NS 500 ML IV ONE ×2 (16:43→18:25)
--- NOTE | 2024-06-29 16:49 | NUR ---
pt co nausea. pt given [address] chaudhari. dr chaudhari at bedside to discuss procedure and plan of care. bp 88/55. dr chaudhari gave verbal order for 500cc fluid bolus. per dr chaudhari, if bp is stable after fluid bolus pt can be d/c'd home. fluid bolus started. groin site and radial site observed by dr chaudhari. both sites soft and non-tender. no evidence of bleeding. pt reports nausea is improving.
--- NOTE | 2024-06-29 17:20 | NUR ---
after 500cc bolus pt continues to report mild nausea and her bp remain on ernesto low end of normal. dr chaudhari to admit the pt for overnight observation.
--- NOTE | 2024-06-29 17:24 | NUR ---
radial site soft and non-tender per pt. cloth dot and arm board placed. groin site soft and non-tender per pt. no evidence of bleeding at either site.
--- NOTE | 2024-06-29 17:26 | NUR ---
500cc bolus complete.
[2024-06-29] MEDS ORDERED: Acetaminophen 325 MG TABLET PO PRN (17:30)
[2024-06-29] MEDS ORDERED: Ondansetron HCl 2 MG / ML 2ML Vial IV PRN (17:35)
--- NOTE | 2024-06-29 17:40 | NUR ---
pt arrived from the [facility]. Per PEYTON Juarez the sites are recovered and the patient can stand to transfer from stretcher to bed. Her blood pressure was 122 systolic before the sitting up and transferring, which she did without difficulty. She says that she has nausea, but no emesis. Right groin site and right radial site are WNL. Cloth dot over the right wrist site, and CHG dressing is intact over the right groin puncture site. Distal pulses are palpable but on the right pedal it is faint, so it was doppled to verify. Cap refill is brisk on all extremities on fingers and toes. Pt is not c/o of any pain at time of arrival, just being cold. Warm blanket was provided and food and drink as well, which she said she wanted.
--- NOTE | 2024-06-29 18:10 | NUR ---
Orthostatic b/p done when pt was up to bedside commode. Mau Rivera and Roosevelt here to see the pt. States that she has been falling 1-2 / week when her blood pressure was low.
[2024-06-29 18:36] LABS: Hematocrit 27.6 % (33.0-51.0); Hemoglobin 9.1 g/dL (11.5-16.0)
--- NOTE | 2024-06-29 18:57 | NUR ---
Dr. Maguire here to see the patient, ordered another H & H for 6 hours from now. Right groin site assessed, WNL at this time.
[2024-06-29] MEDS ORDERED: HydrALAZINE HCl 20 MG / ML 1ML Vial IV PRN (20:15)
[2024-06-29] MEDS ORDERED: diphenhydrAMINE HCL 25 MG/10 ML UDC PO SCH (21:00)
[2024-06-29] MEDS ORDERED: DiphenhydrAMINE HCL 25 MG Cap PO SCH (21:00)
[2024-06-30] VITALS (8 sets, daily range): BP systolic 111–146; BP diastolic 58–74
[2024-06-30 00:52] LABS: Hematocrit 27.1 % (33.0-51.0); Hemoglobin 9.1 g/dL (11.5-16.0)
[2024-06-30 04:23] LABS: Hematocrit 27.7 % (33.0-51.0); Hemoglobin 9.2 g/dL (11.5-16.0)
[2024-06-30 04:38] LABS: Albumin, Blood 2.9 g/dL (3.4-5.0); Bilirubin, Total 0.3 mg/dL (0.1-1.0); Bun/Creatinine Ratio 11.6 (12.0-20.0); Calcium, Blood 9.2 mg/dL (8.5-10.1); Creatinine, Blood 0.95 mg/dL (0.40-1.00); Globulin, Blood 2.8 g/dL (2.2-4.0); Potassium, Blood 3.4 mmol/L (3.5-5.5); Total Protein, Blood 5.7 g/dL (6.4-8.2)
--- NOTE | 2024-06-30 06:26 | NUR ---
SHIFT SUMMARY PT HAD AN OVERALL UNEVENTFUL NIGHT. HEMODYNAMICALLY STABLE. ON ROOM AIR. NO ACUTE DISTRESS.
[2024-06-30] MEDS ORDERED: Nitroglycerin 0.4 MG SUBL SL PRN (06:45)
[2024-06-30] MEDS ORDERED: Potassium Chloride 20 MEQ TabCR PO ONE (06:55)
--- NOTE | 2024-06-30 07:29 | NUR ---
Bedside report from [facility]. The pt is sleeping, RR 14/min. skin pink, warm, dry. Temperature is 97.4. Per report, the pt did not have any more nausea overnight, and no hypotension.
[2024-06-30] MEDS ORDERED: Rivaroxaban 10 MG Tab PO SCH (09:00)
[2024-06-30] MEDS ORDERED: Atorvastatin 40 MG Tab PO SCH (09:00)
[2024-06-30] MEDS ORDERED: Metoprolol Succinate 50 MG TABCR PO SCH (09:00)
[2024-06-30] MEDS ORDERED: Lisinopril 10 MG Tab PO SCH (09:00)
[2024-06-30] MEDS ORDERED: oxyBUTYnin chloride 5 MG TAB PO SCH (09:00)
[2024-06-30] MEDS ORDERED: Glucosamine Sulfate 500 MG Cap PO SCH (09:00)
[2024-06-30] MEDS ORDERED: Aspirin 81 MG TabEC PO SCH (09:00)
[2024-06-30] MEDS ORDERED: buPROPion HCL 150 MG TAB.SR.12H PO SCH (09:00)
[2024-06-30] MEDS ORDERED: HydroCHLOROthiazide 25 mg Tab PO SCH (09:00)
[2024-06-30] MEDS ORDERED: Lisinopril 20 MG Tab PO SCH (09:00)
[2024-06-30] MEDS ORDERED: Enoxaparin 40 MG/0.4 ML SYR SC SCH (09:00)
[2024-06-30] MEDS ORDERED: Prinivil10 MG PO (10:37)
--- NOTE | 2024-06-30 11:40 | NUR ---
Discharge instructions were reviewed with PEYTON Trent who will instruct the patient on her follow up with doctors, changes to her home medications, and wrist and groin artery access activity restrictions.
== END 2024-06-30 12:03 | disposition home or self-care (01) ==
LOC: MHTC 06:53 → PCU 17:40
PROVIDERS: Student in an Organized Health Care Education/Training Program; ADMIT Registered Nurse
DX: I25.10 Atherosclerotic heart disease of native coronary artery without angina pectoris (principal); I95.9 Hypotension, unspecified; I48.0 Paroxysmal atrial fibrillation; R07.89 Other chest pain; R94.39 Abnormal result of other cardiovascular function study; I10 Essential (primary) hypertension; E78.49 Other hyperlipidemia; I25.2 Old myocardial infarction; I65.21 Occlusion and stenosis of right carotid artery; I73.9 Peripheral vascular disease, unspecified; F17.210 Nicotine dependence, cigarettes, uncomplicated; Z79.01 Long term (current) use of anticoagulants; Z79.899 Other long term (current) drug therapy
CPT/HCPCS: 36415; 76937; 80053; 85014; 85018; 93454; 99152; 99153; A9270; C1760; C1769; C1887; C1894; J0360; J1644; J2250; J2405; J3010; J7030; J7040; J7050; Q9967

== ENCOUNTER 2024-08-05 10:20 | Day surgery (SDC) | payer MEDICARE ==
[~2024-08-05] VITALS: Ht 147.3 cm; Wt 46.0 kg
[~2024-08-05 10:20] MED LIST changes: +Aspir 8181 MG PO; +BACL10 PO; +BUPR150ER PO; +Lisinopril-Hct1 EAC4 PO; +POTA10T PO; +Prinivil10 MG PO
[2024-08-05 10:49] VITALS: BP 193/103
[2024-08-05] MEDS ORDERED: NS 250 ML IV ONE (11:50)
[2024-08-05] MEDS ORDERED: Heparin Sodium 1000 Units/ML 10ML MDV ONE (11:50)
[2024-08-05] MEDS ORDERED: NS 1,000 ML IV ONE ×2 (11:51→11:54)
[2024-08-05] MEDS ORDERED: Midazolam HCl 1MG / ML 2ML Vial ONE (12:17)
[2024-08-05] MEDS ORDERED: FentaNYL Citrate 50 MCG/ML 2 ML Injection ONE (12:17)
[2024-08-05 13:05] VITALS: BP 200/99
[2024-08-05 13:15] VITALS: BP 194/93
[2024-08-05] MEDS ORDERED: Acetaminophen 325 MG TABLET PO ONE (13:25)
--- NOTE | 2024-08-05 13:29 | NUR ---
PT TO RECOVERY POST PROCEDURE. PT AWAKE AND CONVERSING APPROPRIATELY, REPORTS MILD DISCOMFORT AT R GROIN. MONITOR SR 80'S, B/P 200/99, SPO2 98% RA. R GROIN NO SWELLING/HEMATOMA, TEGADERM DRSG INTAC; ANGIO SEAL DEPLOYED, RLE PULSES DP DOPPLER, PT 1+.
[2024-08-05] MEDS ORDERED: Acetaminophen 325 MG TABLET ONE (13:40)
[2024-08-05 15:01] VITALS: BP 192/90
--- NOTE | 2024-08-05 15:10 | NUR ---
PT AND S/O VERBALIZES UNDERSTANDING WRITTEN AND VERBAL INSTRCUTIONS. DENIES QUESTIONS. VSS. NADN. PT DRESSES SELF WITHOUT DIFF. PT IV DC'D. CATH INTACT. PRESSURE DSG APPLIED. PT DC TO HOME VIA S/O
== END 2024-08-05 15:24 | disposition home or self-care (01) ==
LOC: MHTC 10:20
DX: I73.9 Peripheral vascular disease, unspecified (principal); I10 Essential (primary) hypertension; I48.21 Permanent atrial fibrillation; E78.5 Hyperlipidemia, unspecified; G89.29 Other chronic pain; M54.50 Low back pain, unspecified; F17.210 Nicotine dependence, cigarettes, uncomplicated; Z79.01 Long term (current) use of anticoagulants; Z79.82 Long term (current) use of aspirin; Z79.899 Other long term (current) drug therapy
CPT/HCPCS: 36200; 36245; 75625; 75716; 75774; 76937; 99152; 99153; A9270; C1760; C1769; C1887; C1894; J1644; J2250; J3010; J7030; J7050; Q9967

== ENCOUNTER 2024-08-19 06:52 | Day surgery (SDC) | payer MEDICARE ==
[2024-08-19] VITALS (8 sets, daily range): BP systolic 128–176; BP diastolic 63–83
[~2024-08-19] VITALS: Ht 147.3 cm; Wt 45.0 kg
[2024-08-19] MEDS ORDERED: NS 1,000 ML IV ONE ×2 (07:06→07:46)
[2024-08-19] MEDS ORDERED: NS 500 ML IV ONE (07:06)
[2024-08-19] MEDS ORDERED: Heparin Sodium 1000 Units/ML 10ML MDV ONE (07:06)
[2024-08-19] MEDS ORDERED: LISI20 PO (07:39)
[2024-08-19] MEDS ORDERED: FentaNYL Citrate 50 MCG/ML 2 ML Injection ONE ×2 (07:46→09:16)
[2024-08-19] MEDS ORDERED: Midazolam HCl 1MG / ML 2ML Vial ONE ×2 (07:46→09:15)
[2024-08-19] MEDS ORDERED: Nitroglycerin 2 MG/20 ML BTL ONE (09:14)
--- NOTE | 2024-08-19 10:00 | NUR ---
patient returned to [facility] recovery room, awakens easily, bilaterla groin sites soft and nontender, no bleeding, no hematoma.
[2024-08-19] MEDS ORDERED: Acetaminophen 325 MG TABLET ONE (10:14)
--- NOTE | 2024-08-19 10:20 | NUR ---
patient c/o discomfort having to lay on back, 2(325) tylenol given
--- NOTE | 2024-08-19 11:20 | NUR ---
patient stting up in bed, visiting with family, back pain resolved
--- NOTE | 2024-08-19 12:25 | NUR ---
Dr Dugan here on discuss procedure with patient, told her not to lift anything heavy for a week, also that right groin site tenderness is normal and will go away, plan for second procedure in august.
--- NOTE | 2024-08-19 12:40 | NUR ---
patient verbalized understanding of discahrge instructions and precautions. bilateral groin sites soft, no hematoma, no bleeding. patient discharged to waiting car via wheel chair, iv site dced with catheter intact. daughter driving.
== END 2024-08-19 13:42 | disposition home or self-care (01) ==
LOC: MHTC 06:52
DX: I70.213 Atherosclerosis of native arteries of extremities with intermittent claudication, bilateral legs (principal); I48.21 Permanent atrial fibrillation; I10 Essential (primary) hypertension; E78.5 Hyperlipidemia, unspecified; G89.29 Other chronic pain; M54.50 Low back pain, unspecified; F17.210 Nicotine dependence, cigarettes, uncomplicated; Z79.82 Long term (current) use of aspirin; Z79.01 Long term (current) use of anticoagulants; Z79.899 Other long term (current) drug therapy
CPT/HCPCS: 36200; 37184; 37221; 37224; 75716; 75774; 76937; 99152; 99153; A9270; C1725; C1760; C1769; C1876; C1884; C1887; C1894; C2623; J1644; J2250; J3010; J7030; J7050; Q9967

== ENCOUNTER 2024-09-02 08:36 | Day surgery (SDC) | payer MEDICARE ==
[~2024-09-02] VITALS: Ht 147.3 cm; Wt 46.3 kg
[2024-09-02] VITALS (9 sets, daily range): BP systolic 118–171; BP diastolic 65–114
[2024-09-02] MEDS ORDERED: NS 250 ML IV ONE (10:25)
[2024-09-02] MEDS ORDERED: NS 1,000 ML IV ONE ×2 (10:26→10:28)
[2024-09-02] MEDS ORDERED: Nitroglycerin 2 MG/20 ML BTL ONE (10:26)
[2024-09-02] MEDS ORDERED: Heparin Sodium 1000 Units/ML 10ML MDV ONE (10:26)
[2024-09-02] MEDS ORDERED: Midazolam HCl 1MG / ML 2ML Vial ONE (10:27)
[2024-09-02] MEDS ORDERED: FentaNYL Citrate 50 MCG/ML 2 ML Injection ONE ×2 (10:28→12:52)
--- NOTE | 2024-09-02 11:25 | NUR ---
PATIENT RETURNED TO RECOVERY ROOM, a&o, LEFT GROIN SITE SOFT, NO HEMATOMA, NO BLEEDING C/ STABBING PAIN AT SITE AND PAIN APOSTERIOR HIP. A SPECIFIC SPOT THAT IS 9/10 SCALE
[2024-09-02] MEDS ORDERED: Clopidogrel Bisulfate 75 MG Tab ONE (12:38)
--- NOTE | 2024-09-02 13:00 | NUR ---
SPOKE TO dR Felipe ABOUT PATIENTS PAIN, OK TO GIVE FENTANYL FOR POST OP PAIN
--- NOTE | 2024-09-02 13:22 | NUR ---
PATIENT VISITING WITH FAMILY, EATING CHOCOLATE, DRINKING FLUIDS, STATES THAT PAIN IS DECREASING NOW.
[2024-09-02] MEDS ORDERED: CLOP75 PO (13:37)
[2024-09-02] MEDS ORDERED: Acetaminophen 325 MG TABLET ONE (13:52)
--- NOTE | 2024-09-02 14:44 | NUR ---
PATIENT SITTING UP IN BED DENIES PAIN AT GROIN SITE, STATES A LITTLE ON BACK OF HIP.
--- NOTE | 2024-09-02 15:08 | NUR ---
Dr Dugan in to discuss procedure with patient
--- NOTE | 2024-09-02 15:30 | NUR ---
patient and family verbalized understanding of discharge instructions and precautions, no further qusetions, iv site dced with catheter intact, groin site remains soft, no hematoma, no bleeding, states uncomfortable with movement, but then ok. patient dicharged via wheel chair, daughter driving.
== END 2024-09-03 03:17 | disposition home or self-care (01) ==
LOC: MHTC 08:36
DX: I70.223 Atherosclerosis of native arteries of extremities with rest pain, bilateral legs (principal); I48.21 Permanent atrial fibrillation; I10 Essential (primary) hypertension; E78.5 Hyperlipidemia, unspecified; F17.210 Nicotine dependence, cigarettes, uncomplicated; G89.29 Other chronic pain; M54.50 Low back pain, unspecified; Z79.01 Long term (current) use of anticoagulants; Z79.899 Other long term (current) drug therapy; Z79.82 Long term (current) use of aspirin; Z98.890 Other specified postprocedural states
CPT/HCPCS: 76937; 99152; 99153; A9270; C1725; C1760; C1769; C1874; C1887; C1894; C2623; J1644; J2250; J3010; J7030; J7050; Q9967

== ENCOUNTER 2024-09-23 20:53 | Emergency (ER) | payer MEDICARE ==
[~2024-09-23] VITALS: Ht 147.3 cm; Wt 44.9 kg
[~2024-09-23 20:53] MED LIST changes: +CLOP75 PO
[2024-09-23 21:18] VITALS: BP 180/100
[2024-09-23] MEDS ORDERED: ACET500 PO (23:27)
== END 2024-09-23 23:39 | disposition home or self-care (01) ==
LOC: ER 20:53
DX: M25.532 Pain in left wrist (principal); W54.1XXA Struck by dog, initial encounter; Z79.899 Other long term (current) drug therapy; Z79.82 Long term (current) use of aspirin; I48.91 Unspecified atrial fibrillation; F17.210 Nicotine dependence, cigarettes, uncomplicated
CPT/HCPCS: 29125; 70450; 73110; 99284-25

== ENCOUNTER 2024-10-23 21:29 | Emergency (ER) | payer MEDICARE ==
[~2024-10-23] VITALS: Ht 147.3 cm; Wt 44.0 kg
[~2024-10-23 21:29] MED LIST changes: +ACET500 PO
[2024-10-23 21:38] VITALS: BP 161/103
[2024-10-24] MEDS ORDERED: Voltaren100 GM TOP (01:04)
[2024-10-24] MEDS ORDERED: Ketorolac Tromethamine 15mg Vial IV ONE (02:30)
== END 2024-10-24 03:10 | disposition home or self-care (01) ==
LOC: ER 21:29
DX: S76.011A Strain of muscle, fascia and tendon of right hip, initial encounter (principal); F17.210 Nicotine dependence, cigarettes, uncomplicated; X58.XXXA Exposure to other specified factors, initial encounter; Z79.899 Other long term (current) drug therapy; Z79.02 Long term (current) use of antithrombotics/antiplatelets; Z79.82 Long term (current) use of aspirin
CPT/HCPCS: 73502; 99283-25; J1885

== ENCOUNTER 2024-12-23 23:58 | Emergency (ER) | payer MEDICARE ==
[~2024-12-23] VITALS: Ht 147.3 cm; Wt 40.8 kg
[~2024-12-23 23:58] MED LIST changes: +Voltaren100 GM TOP
[2024-12-24] MEDS ORDERED: Morphine Sulfate 4 MG/1 ML Injection IM ONE (01:25)
[2024-12-24] MEDS ORDERED: Lidocaine 4% 1 Patch TOP ONE (01:25)
[2024-12-24] MEDS ORDERED: LIDO700A20 TOP (03:18)
[2024-12-24 03:25] VITALS: BP 186/86
== END 2024-12-24 03:36 | disposition home or self-care (01) ==
LOC: ER 23:58
DX: M79.81 Nontraumatic hematoma of soft tissue (principal); M25.512 Pain in left shoulder; I16.0 Hypertensive urgency; I10 Essential (primary) hypertension; I48.91 Unspecified atrial fibrillation; F17.200 Nicotine dependence, unspecified, uncomplicated; Z79.82 Long term (current) use of aspirin; Z79.899 Other long term (current) drug therapy; Z79.02 Long term (current) use of antithrombotics/antiplatelets
CPT/HCPCS: 71046; 73030; 93005; 93010; 96372; 99283-25; A9270; J2270

== ENCOUNTER 2024-12-26 09:26 | Emergency (ER) | payer MEDICARE ==
[~2024-12-26] VITALS: Ht 147.3 cm; Wt 43.5 kg
[~2024-12-26 09:26] MED LIST changes: +LIDO700A20 TOP
[2024-12-26 09:44] VITALS: BP 190/120
[2024-12-26] MEDS ORDERED: Lidocaine/Tetracaine/Epinephr 3 ML GEL SYRINGE TOP ONE ×2 (10:10→11:00)
== END 2024-12-26 13:03 | disposition home or self-care (01) ==
LOC: ER 09:26
DX: K13.0 Diseases of lips (principal); I10 Essential (primary) hypertension; Z79.01 Long term (current) use of anticoagulants; Z79.899 Other long term (current) drug therapy; Z79.82 Long term (current) use of aspirin; Z79.02 Long term (current) use of antithrombotics/antiplatelets
CPT/HCPCS: 12011; 99283-25

== ENCOUNTER 2024-12-31 17:09 | Inpatient (IN) | payer MEDICARE ==
[~2024-12-31] VITALS: Ht 147.3 cm; Wt 46.6 kg
[2024-12-31 17:30] LABS: BASOPHILS ABSOLUTE AUTO 0.04 K/mm3 (0.00-0.23); BASOPHILS PERCENT AUTO 1 % (0-2); EOSINOPHILS ABSOLUTE AUTO 0.15 K/mm3 (0.00-0.68); EOSINOPHILS PERCENT AUTO 2 % (0-6); Hematocrit 37.8 % (33.0-51.0); Hemoglobin 12.3 g/dL (11.5-16.0); IMMATURE GRAN ABSOLUTE AUTO 0.02 K/mm3 (0.00-0.10); IMMATURE GRAN PERCENT AUTO 0 % (0-1); LYMPHOCYTES ABSOLUTE AUTO 2.36 K/mm3 (0.84-5.20); LYMPHOCYTES PERCENT AUTO 28 % (21-46); MONOCYTES ABSOLUTE AUTO 0.59 K/mm3 (0.16-1.47); MONOCYTES PERCENT AUTO 7 % (4-13); Mean Corpuscular HGB 29.2 pg (26.0-34.0); Mean Corpuscular HGB Conc 32.5 g/dL (31.5-36.5); Mean Corpuscular Volume 90 fL (80-100); Mean Platelet Volume 9.5 fL (9.1-12.4); NEUTROPHILS ABSOLUTE AUTO 5.33 K/mm3 (1.96-9.15); NEUTROPHILS PERCENT AUTO 63 % (41-73); Platelet Count 290 K/mm3 (150-400); RDW Coefficient Variation 19.9 % (11.7-14.2); RDW Standard Deviation 64.4 fL (35.1-46.3); Red Blood Cell Count 4.21 M/mm3 (3.80-5.20); White Blood Cell Count 8.49 K/mm3 (4.00-11.30)
[2024-12-31 18:03] LABS: Ethanol (Alcohol), Blood, Med <3 mg/dL
[2024-12-31 18:07] LABS: Alanine Aminotransfer (ALT/SGP 18 U/L (12-78); Albumin, Blood 3.3 g/dL (3.4-5.0); Alk Phos 107 U/L (50-136); Anion Gap 10 mmol/L (3-11); Aspartate Aminotrans (AST/SGOT 18 U/L (12-37); Bilirubin, Total 0.3 mg/dL (0.1-1.0); Blood Urea Nitrogen 18 mg/dL (8-24); Bun/Creatinine Ratio 19.9 (12.0-20.0); CO2, Blood 25 mmol/L (21-32); Calcium, Blood 9.1 mg/dL (8.5-10.1); Chloride, Blood 111 mmol/L (98-108); Creatinine, Blood 0.91 mg/dL (0.40-1.00); Globulin, Blood 3.2 g/dL (2.2-4.0); Glomerular Filtration Rate 65 (60-); Glucose, Blood 100 mg/dL (70-99); Potassium, Blood 3.6 mmol/L (3.5-5.5); Sodium, Blood 142 mmol/L (136-145); Thyroid Stimulating Hormone 0.598 uIU/mL (0.360-4.800); Total Protein, Blood 6.5 g/dL (6.4-8.2)
[2024-12-31 18:32] LABS: Source, Urine Straight Cath
[2024-12-31 18:33] LABS: Appearance, Urine Hazy (Clear); Bilirubin, Urine Neg (Neg); Blood, Urine 1+ (Neg); Color, Urine Yellow (P-Yellow); Glucose Qualitative, Urine Neg (Neg); Ketones, Urine Neg (Neg); Leukocyte Esterase, Urine 2+ (Neg); Nitrite, Urine Pos (Neg); Protein, Urine 1+ (Neg); Specific Gravity, Urine 1.025 (1.003-1.022); Urobilinogen, Urine NORM (Normal)
[2024-12-31 18:43] LABS: Bacteria Many /hpf; Squamous Epithelial Cells Few /hpf (Few)
[2024-12-31 19:00] LABS: U Amphetamine Screen Not Detected; U Barbituate Screen Not Detected; U Benzodiazapine Screen Not Detected; U Buprenorphine Screen Not Detected; U Cannabinoids Screen Not Detected; U Cocaine Screen Not Detected; U Methadone Screen Not Detected; U Methamphetamine Screen Not Detected; U Opiates Screen Not Detected; U Oxycodone Screen DETECTED; U Phencyclidine Screen Not Detected
[2024-12-31] MEDS ORDERED: CefTRIAXone Sodium 1,000 MG in NS 100 ML IV ONE (19:15)
[2024-12-31] MEDS ORDERED: Atropine Sulfate 0.1 MG/ML 10ML SYR IV PRN (20:20)
[2024-12-31] MEDS ORDERED: Ondansetron HCl 2 MG / ML 2ML Vial IV PRN (20:20)
[2024-12-31] MEDS ORDERED: HydrALAZINE HCl 25 MG Tab PO PRN (20:25)
[2024-12-31] MEDS ORDERED: NS 1,000 ML IV SCH (20:25)
[2024-12-31] MEDS ORDERED: NS 1,000 ML IV ONE (20:30)
[2024-12-31] MEDS ORDERED: OxyCODONE 5 mg/Acetamin 325 mg TABLET PO PRN (20:30)
[2024-12-31] MEDS ORDERED: Sennosides 8.6 MG Tab PO SCH (21:00)
[2024-12-31] MEDS ORDERED: Lactobacil 2-S.Thermo-Bifido 1 1 Cap PO SCH (21:00)
[2024-12-31 22:30] VITALS: BP 150/91
--- NOTE | 2024-12-31 22:30 | NUR ---
PT ADMITTED TO ROOM 8 FROM ER, PT ALERT BUT EXTREMELY DROWSY. ORIENTED TO NAME ONLY. ADMISSION DATA RECEIVED FROM PTS . PT NOT ANSWERING QUESTIONS, FULL BODY ASSESSMENT SHOWS SMALL HEALING BRUISING TO UPPER AND LOWER EXTREMITIES. PTS STATES PT HAS FALLEN SEVERAL TIMES AT HOME. PTS BLADDER SCANNED DUE TO NOT VOIDING, 212 NOTED IN BLADDER, PT ASSISTED TO BSC WITH 2 PEOPLE, PT VOIDED MINIMAL AMOUNT, WILL CONTINUE TO MONITOR. PT REFUSING ANY MEDS, IVF STARTED PER ORDER. BED ALARM IN PLACE. WILL CONTINUE TO MONITOR, PTS REMAINS AT BEDSIDE
[2025-01-01] VITALS (13 sets, daily range): BP systolic 135–216; BP diastolic 50–105
[2025-01-01 04:54] LABS: BASOPHILS ABSOLUTE AUTO 0.04 K/mm3 (0.00-0.23); BASOPHILS PERCENT AUTO 1 % (0-2); EOSINOPHILS ABSOLUTE AUTO 0.15 K/mm3 (0.00-0.68); EOSINOPHILS PERCENT AUTO 2 % (0-6); Hematocrit 34.9 % (33.0-51.0); Hemoglobin 11.2 g/dL (11.5-16.0); IMMATURE GRAN ABSOLUTE AUTO 0.02 K/mm3 (0.00-0.10); IMMATURE GRAN PERCENT AUTO 0 % (0-1); LYMPHOCYTES ABSOLUTE AUTO 2.56 K/mm3 (0.84-5.20); LYMPHOCYTES PERCENT AUTO 34 % (21-46); MONOCYTES ABSOLUTE AUTO 0.62 K/mm3 (0.16-1.47); MONOCYTES PERCENT AUTO 8 % (4-13); Mean Corpuscular HGB 29.2 pg (26.0-34.0); Mean Corpuscular HGB Conc 32.1 g/dL (31.5-36.5); Mean Corpuscular Volume 91 fL (80-100); Mean Platelet Volume 10.5 fL (9.1-12.4); NEUTROPHILS ABSOLUTE AUTO 4.08 K/mm3 (1.96-9.15); NEUTROPHILS PERCENT AUTO 55 % (41-73); Platelet Count 268 K/mm3 (150-400); RDW Coefficient Variation 19.8 % (11.7-14.2); RDW Standard Deviation 65.2 fL (35.1-46.3); Red Blood Cell Count 3.83 M/mm3 (3.80-5.20); White Blood Cell Count 7.47 K/mm3 (4.00-11.30)
[2025-01-01 05:35] LABS: Bun/Creatinine Ratio 22.1 (12.0-20.0); Calcium, Blood 8.6 mg/dL (8.5-10.1); Creatinine, Blood 0.86 mg/dL (0.40-1.00); Magnesium, Blood 1.8 mg/dL (1.6-2.4); Potassium, Blood 3.3 mmol/L (3.5-5.5)
--- NOTE | 2025-01-01 05:56 | NUR ---
pt slept soundly except when up to bedside commode to void. pt continues to refuse periwick, pts remains at bedide. ivf's infusing without difficulty, pt remains in sinus [place], in the 40's at times. call light in reach, bed alarm in use
[2025-01-01] MEDS ORDERED: Rivaroxaban 10 MG Tab PO SCH (09:00)
[2025-01-01] MEDS ORDERED: Docusate Sodium 100 MG Cap PO SCH (09:00)
[2025-01-01] MEDS ORDERED: Lisinopril 10 MG Tab PO SCH (09:00)
--- NOTE | 2025-01-01 10:26 | NUR ---
ASSUMPTION OF CARE: PATIENT IS ALERT AND ORIENTED X 2-3, FORGETFUL, THOUGHT PROCESS FOGGY, BUT ABLE TO FOLLOW COMMANDS, ENDORSE SOME HISTORY. PATIENT IS EXTREMELY PAINFUL WHICH IS BASELINE. PATIENT LUNGS CLEAR TO DIM SHALLOWER BREATHING BUT CAN DAWIT EDEEP BREATH AND COUGH EDUCATED ON THIS. YADI AT BEDSIDE. CURRENLTY SR 60'S OCCASISIONALY UPPER 50'S. DENIES CHEST PAIN PRESSURE OR SOB AT REST. HAS BEEN ABLE TO GET UP 2P WITH MODERATE ASSISTANCE TO BSC. PLAN OF CARE CONTINIES
[2025-01-01] MEDS ORDERED: CefTRIAXone Sodium 1,000 MG in NS 100 ML IV SCH (12:00)
[2025-01-01] MEDS ORDERED: Baclofen 10 MG Tab PO PRN (14:40)
[2025-01-01] MEDS ORDERED: HydroCHLOROthiazide 25 mg Tab PO SCH (16:15)
[2025-01-01] MEDS ORDERED: HydrALAZINE HCl 20 MG / ML 1ML Vial IV PRN (17:25)
--- NOTE | 2025-01-01 17:26 | NUR ---
EOS: PATIENT 1600 GOLDY BLOOD PRESSURE REELEVATED TO 200, STARTED 25MG HCTZ, PER DR. SHETH, NO CHANGE AT POST ADMINISTRATION GOLDY, PRN HYDRALAzINE OBTAINED FROM DR. SHETH, PATIENT DENIES CHEST PAIN PRESSURE OR SOB. PATIENT TOLERATED PAIN MEDICATION WITH NO WORSENING TO MENTATION. MOSTLY A/O X3. STILL FOGGY, BED BATH BY PCT'S, IMPROVED URINE OUTPUT. STILL MILD DIFFICULTY MAKING NEEDS KNOWN, BUT SLOWLY IMPROVING.
[2025-01-01] MEDS ORDERED: Potassium Chloride 20 MEQ TabCR PO ONE (22:05)
--- NOTE | 2025-01-01 22:05 | NUR ---
PT C/O CHEST PAIN, EKG COMPLETED BY CHARGE NURSE, DR.SINEH ALISA NOTIFIED, NEW ORDERS RECEIVED
[2025-01-02] VITALS (13 sets, daily range): BP systolic 109–196; BP diastolic 56–87
[2025-01-02 04:56] LABS: BASOPHILS ABSOLUTE AUTO 0.05 K/mm3 (0.00-0.23); BASOPHILS PERCENT AUTO 1 % (0-2); EOSINOPHILS ABSOLUTE AUTO 0.14 K/mm3 (0.00-0.68); EOSINOPHILS PERCENT AUTO 2 % (0-6); Hematocrit 31.9 % (33.0-51.0); Hemoglobin 10.8 g/dL (11.5-16.0); IMMATURE GRAN ABSOLUTE AUTO 0.02 K/mm3 (0.00-0.10); IMMATURE GRAN PERCENT AUTO 0 % (0-1); LYMPHOCYTES ABSOLUTE AUTO 2.01 K/mm3 (0.84-5.20); LYMPHOCYTES PERCENT AUTO 28 % (21-46); MONOCYTES ABSOLUTE AUTO 0.51 K/mm3 (0.16-1.47); MONOCYTES PERCENT AUTO 7 % (4-13); Mean Corpuscular HGB 29.8 pg (26.0-34.0); Mean Corpuscular HGB Conc 33.9 g/dL (31.5-36.5); Mean Corpuscular Volume 88 fL (80-100); Mean Platelet Volume 10.5 fL (9.1-12.4); NEUTROPHILS ABSOLUTE AUTO 4.42 K/mm3 (1.96-9.15); NEUTROPHILS PERCENT AUTO 62 % (41-73); Platelet Count 268 K/mm3 (150-400); RDW Coefficient Variation 19.8 % (11.7-14.2); RDW Standard Deviation 63.4 fL (35.1-46.3); Red Blood Cell Count 3.63 M/mm3 (3.80-5.20); White Blood Cell Count 7.15 K/mm3 (4.00-11.30)
[2025-01-02 05:15] LABS: Albumin, Blood 2.9 g/dL (3.4-5.0); Bilirubin, Total 0.4 mg/dL (0.1-1.0); Bun/Creatinine Ratio 15.5 (12.0-20.0); Calcium, Blood 8.7 mg/dL (8.5-10.1); Creatinine, Blood 0.71 mg/dL (0.40-1.00); Globulin, Blood 2.9 g/dL (2.2-4.0); Potassium, Blood 3.7 mmol/L (3.5-5.5); Total Protein, Blood 5.8 g/dL (6.4-8.2)
--- NOTE | 2025-01-02 05:55 | NUR ---
PT REMAINS ORIENTED, UP TO BSC WITH ASSISTANCE. B/P ELEVATED TIMES 2, PRN APRELINE GIVEN PER ORDER WITH GOOD RESULTS NOTED. PT DENIES ANY FURTHER EPISODES OF CHEST PAIN. CALL LIGHT IN REACH, BED ALARM IN USE
--- NOTE | 2025-01-02 08:17 | NUR ---
ASSUMPTION OF CARE: PATIENT IS ALERT AND ORIENTED X 4, STILL HAVING SOME DIFFICULTY WITH WORDS, BUT OVERALL IMPROVING. DENIES CARDIAC CHEST PAIN HOWEVER VERY PAINFUL GENERALIZED ESPECAILLY LEFT SHOULDER AND BACK. HR IS INCRFEASED FOR HER, SPOKE WITH PROVIDER IN REGAURDS TO METOPROLOL STARTING. PATIENT ALSO ENDORSES A HEADACHE. SR CURRENLTY IN 80-90'S LOW 100'S AT TIME. YESTERDAY WAS 70-80'S. MILD NAUSEA TREATED WITH PRN ZOFRAN. LITTLE IMPROVEMENT WITH PRN. BLOOD PRESURE AGAIN ELEVATED AM BP MEDS GIVEN AND SPOKE TO PROVIDER. PLAN OF CARE CONTNIUES.
[2025-01-02] MEDS ORDERED: Aspirin 81 MG TabEC PO SCH (09:00)
[2025-01-02] MEDS ORDERED: Atorvastatin 40 MG Tab PO SCH (09:00)
[2025-01-02] MEDS ORDERED: Isosorbide Mononitrate 60 MG TABCR PO SCH (09:00)
[2025-01-02] MEDS ORDERED: Metoprolol Succinate 25 MG TABCR PO SCH (09:00)
--- NOTE | 2025-01-02 14:02 | NUR ---
DECREASED BLOOD PRESSURE, GOLDY OF BLOOD PRESSURE, LOWER SYSTOLIC 99/51 (66) PATIENT HAS BEEN ASYMPTOMATIC, CONTINUE FLUIDS AND MONITOR. PATIENT WITH GOLDY AFTER AN HOUR MAP >65. NO OTHER ACUTE CONCERN FROM THIS RN. DENIES DIZZINESS LIGHTHEADEDNESS TOLERATING ORTHOSTATIC CHANGES
--- NOTE | 2025-01-02 18:44 | NUR ---
EOS: PATIENT BLOOD PRESSURE NORMALIZED FOR HER 130-150. PATIENT DENIED ANY DIZZINESS CHEST PAIN PRESSURE OR SOB. JOVANY HAS BEEN COOPERATIVE, ABLE TO USE THE CALL LIGHT, STILL ENDORSES NAUSEA REQUIRING 2 DOSES THROUGH THE DAY FOR NAUSEA. CERTIFICATION TECHNICIAN SEEN PATIENT. NO OTHER ACUTE CONCERNS THROUGH THE DAY. PLAN OF CARE CONTINUES. CONTINUES TO IMPROVE.
[2025-01-02] MEDS ORDERED: HyDROXyzine HCl 25 MG Tab PO PRN (19:35)
--- NOTE | 2025-01-02 21:44 | NUR ---
ASSUMPTION OF CARE THIS RN ASSUMED CARE OF PATIENT AT 1900. BEDSIDE REPORT DONE WITH JAMES TODD. PT A&O X4. ABLE TO MAKE NEEDS KNOWN. REPORTS FORGETFULNESS OF THE PAST SEVERAL DAYS. VSS AT THIS TIME. PT REQUESTING BP BE CHECKED Q30 MINUTES. ON RA. THIS RN WENT OVER EXPECTATIONS OF THE NIGHT. PT EDUCATED ON Q4HR VITALS BEING DONE AND HOURLY ROUNDING. THIS RN VERBALIZED TO PATIENT THAT THIS RN WILL COME INTO ROOM AT LEAST Q1HR, IF SHE APPEARS TO BE SLEEPING I WILL NOT WAKE HER. PT VERBALIZED UNDERSTANDING. VERBALIZED UNDERSTANDING HOW TO USE CALL LIGHT FOR NEEDS. BED ALARM ON FOR SAFETY. NONSLIP SOCKS IN PLACE. THIS RN SPOKE TO MD DEVRIES PT REQUESTING MEDICATION FOR SLEEP, WITH ORDERS; MEDICATED PER EMAR. MEDICATED PER EMAR FOR PAIN. BED IN LOWEST POSITION AND CALL LIGHT WITHIN REACH.
[2025-01-03] VITALS (19 sets, daily range): BP systolic 130–201; BP diastolic 59–107
--- NOTE | 2025-01-03 04:27 | NUR ---
SHIFT SUMMARY SEE PREVIOUS NOTE. NO NEURO CHANGES DURING THIS SHIFT. PT WAS DROWSY WHEN WAKING UP THIS AM BUT WAS ABLE TO ANSWER QUESTIONS APPROPRIATELY. PT REPORTING GETTING SLEEP DURING THIS SHIFT. AMBULATING TO BATHROOM WITH 1P ASSIST WITH FWW. BED ALARM ON. SB WITH HR 50-60. BP STABLE. OTHER VSS. NS INFUSING PER EMAR. BED IN LOWEST POSITION AND CALL LIGHT WITHIN REACH. THIS RN [facility].
[2025-01-03 05:05] LABS: BASOPHILS ABSOLUTE AUTO 0.03 K/mm3 (0.00-0.23); BASOPHILS PERCENT AUTO 1 % (0-2); EOSINOPHILS ABSOLUTE AUTO 0.14 K/mm3 (0.00-0.68); EOSINOPHILS PERCENT AUTO 3 % (0-6); Hematocrit 28.6 % (33.0-51.0); Hemoglobin 9.4 g/dL (11.5-16.0); IMMATURE GRAN ABSOLUTE AUTO 0.01 K/mm3 (0.00-0.10); IMMATURE GRAN PERCENT AUTO 0 % (0-1); LYMPHOCYTES ABSOLUTE AUTO 1.83 K/mm3 (0.84-5.20); LYMPHOCYTES PERCENT AUTO 32 % (21-46); MONOCYTES ABSOLUTE AUTO 0.46 K/mm3 (0.16-1.47); MONOCYTES PERCENT AUTO 8 % (4-13); Mean Corpuscular HGB 29.4 pg (26.0-34.0); Mean Corpuscular HGB Conc 32.9 g/dL (31.5-36.5); Mean Corpuscular Volume 89 fL (80-100); Mean Platelet Volume 10.2 fL (9.1-12.4); NEUTROPHILS ABSOLUTE AUTO 3.22 K/mm3 (1.96-9.15); NEUTROPHILS PERCENT AUTO 57 % (41-73); Platelet Count 235 K/mm3 (150-400); RDW Coefficient Variation 19.9 % (11.7-14.2); RDW Standard Deviation 64.8 fL (35.1-46.3); White Blood Cell Count 5.69 K/mm3 (4.00-11.30)
[2025-01-03 06:12] LABS: Albumin, Blood 2.6 g/dL (3.4-5.0); Anion Gap 9 mmol/L (3-11); Blood Urea Nitrogen 14 mg/dL (8-24); Bun/Creatinine Ratio 18.3 (12.0-20.0); CO2, Blood 24 mmol/L (21-32); Calcium, Blood 8.6 mg/dL (8.5-10.1); Chloride, Blood 109 mmol/L (98-108); Creatinine, Blood 0.77 mg/dL (0.40-1.00); Glomerular Filtration Rate 80 (60-); Glucose, Blood 96 mg/dL (70-99); Phosphorus, Blood 3.9 mg/dL (2.5-4.9); Potassium, Blood 3.6 mmol/L (3.5-5.5); Sodium, Blood 138 mmol/L (136-145)
--- NOTE | 2025-01-03 08:33 | NUR ---
ASUMPTION OF CARE: PATIENT STILL IMPROVING WITH VOCUBALARY AND MENTATION A/O X 4. BLOOD PRESSURE LABILE. PROVIDER AWARE HOLDING METOPROLOL HR DROPPED TO THE UPPER 40'S THROUGH THE NIGHT. DENIES CHEST PAIN PRESSURE OR SOB. MILD ANXIETY. INFUSING FLUIDS, AND ABX. LUNGS BASES DIM BUT CLEAR. NO ACUTE CONCERN THAT HAS NOT BEEN ADDRESSED. PLAN OF CARE CONTINUES
[2025-01-03] MEDS ORDERED: Apixaban 5 MG Tab PO SCH (09:00)
[2025-01-03] MEDS ORDERED: Rivaroxaban 10 MG Tab PO SCH (09:00)
[2025-01-03] MEDS ORDERED: Lisinopril 5 MG Tab PO SCH ×2 (09:00→21:00)
--- NOTE | 2025-01-03 12:06 | NUR ---
MULTIPLE MEDICATION CHANGES FROM PROVIDER, CHANGE TO MED TELE. PATIENT OVERALL IMPROVING SITTING IN THE CHAIR AT TIME OF ASSESSMENT. PLAN OF CARE CONTINUES.
[2025-01-03] MEDS ORDERED: Polyethylene Glycol 3350 17 gm PO PRN (17:30)
[2025-01-03] MEDS ORDERED: Docusate Sodium/Senna 1 Tab PO PRN (17:30)
--- NOTE | 2025-01-03 18:27 | NUR ---
EOS: NO SIGNIFICANT CHANGES. BLOOD PRESSURE REAMINS LABILE. PROVIDER AWARE, NEW BOWEL MEDS, XR LEFT SHOULDER. PROVIDER AWARE, EDUCATED TO INCREASE USE. NEW MED CHANGES FOR BLOOD PRESSURE MEDS. DENIES CHEST PAIN PRESSURE OR SOB AT REST. SPO2 >94%. ON RA. NO ACUTE CONCERNS FROM THIS RN AT THIS TIME. PLAN OF CARE CONTINUES.
--- NOTE | 2025-01-03 21:45 | NUR ---
[place] of care: Report received from day RN. Patient is awake and alert. Able to make needs known. No issues at this time. Continue Care.
--- NOTE | 2025-01-03 23:30 | NUR ---
REPORT GIVEN TO PAULINE TODD ON MEDICAL FLOOR PATIENT BEING TRANSFERRED NOW TO ROOM 364. PATIENT IS AWARE OF ROOM CHANGE
[2025-01-04] VITALS (9 sets, daily range): BP systolic 130–198; BP diastolic 57–87
[2025-01-04 05:14] LABS: BASOPHILS ABSOLUTE AUTO 0.04 K/mm3 (0.00-0.23); BASOPHILS PERCENT AUTO 1 % (0-2); EOSINOPHILS PERCENT AUTO 4 % (0-6); Hematocrit 27.8 % (33.0-51.0); Hemoglobin 9.2 g/dL (11.5-16.0); IMMATURE GRAN ABSOLUTE AUTO 0.01 K/mm3 (0.00-0.10); IMMATURE GRAN PERCENT AUTO 0 % (0-1); LYMPHOCYTES ABSOLUTE AUTO 2.13 K/mm3 (0.84-5.20); LYMPHOCYTES PERCENT AUTO 42 % (21-46); MONOCYTES ABSOLUTE AUTO 0.38 K/mm3 (0.16-1.47); MONOCYTES PERCENT AUTO 7 % (4-13); Mean Corpuscular HGB 29.7 pg (26.0-34.0); Mean Corpuscular HGB Conc 33.1 g/dL (31.5-36.5); Mean Corpuscular Volume 90 fL (80-100); Mean Platelet Volume 10.4 fL (9.1-12.4); NEUTROPHILS ABSOLUTE AUTO 2.36 K/mm3 (1.96-9.15); NEUTROPHILS PERCENT AUTO 46 % (41-73); Platelet Count 224 K/mm3 (150-400); RDW Coefficient Variation 19.8 % (11.7-14.2); RDW Standard Deviation 63.9 fL (35.1-46.3); White Blood Cell Count 5.12 K/mm3 (4.00-11.30)
[2025-01-04 05:39] LABS: Albumin, Blood 2.7 g/dL (3.4-5.0); Anion Gap 6 mmol/L (3-11); Blood Urea Nitrogen 14 mg/dL (8-24); Bun/Creatinine Ratio 20.1 (12.0-20.0); CO2, Blood 28 mmol/L (21-32); Calcium, Blood 8.4 mg/dL (8.5-10.1); Chloride, Blood 109 mmol/L (98-108); Glomerular Filtration Rate 90 (60-); Glucose, Blood 80 mg/dL (70-99); Magnesium, Blood 1.8 mg/dL (1.6-2.4); Phosphorus, Blood 3.7 mg/dL (2.5-4.9); Potassium, Blood 3.6 mmol/L (3.5-5.5); Sodium, Blood 139 mmol/L (136-145)
--- NOTE | 2025-01-04 05:58 | NUR ---
SHIFT SUMMARY PT IS PCU TRANSFER. ADMITTED WITH TOXIC METABOLIC ENCEPHALOPATHY. PT ALERT AND ORIENTED TIMES 4. PT IS FULL CODE, HAS TELE, SINUS RHYTHM. PT APPEARED TP SLEEP THROUGH THE NIGHT BED IN LOW POSITION, RAILS TIMES TWO, CALL LIGHT WITHIN REACH.
[2025-01-04] MEDS ORDERED: Isosorbide Mononitrate 30 MG TABCR PO SCH (09:00)
[2025-01-04] MEDS ORDERED: Metoprolol Succinate 25 MG TABCR PO SCH ×2 (09:00→20:00)
[2025-01-04] MEDS ORDERED: HydrALAZINE HCl 20 MG / ML 1ML Vial IV ONE (12:00)
[2025-01-04] MEDS ORDERED: Prinivil10 MG PO (13:27)
[2025-01-04] MEDS ORDERED: OXYCODONE-ACET1 EAC3 PO (13:28)
[2025-01-04] MEDS ORDERED: ONDA4ODT MM (13:28)
--- NOTE | 2025-01-04 14:01 | NUR ---
Irma (pt) is awake and at bedside with Topher (spouse). Pt reports feeling some disorientation following being admitted to the hospital. Pt is conversational and eager for a visit with a sock and stocking ironer. Pt is transitioning from a Buddhist renan to a Seventh Day Zoroastrian renan because of a lack of local synogogues. Provided compassionate listening and explored relationship dynamics. Spouse was initially withdrawn in the corner of the room but was gradually drawn into discussion by the pt. Pt and spouse have differening views that are irreconcilable, according to the pt. Spouse grew up in a family with disparate beliefs and therefore chooses not to be cheondoism but claims he had a belief in a higher power. Attempted to bridge the gap between the differing belief systems. Pt and spouse have experienced this dissonance for many years but remain in a healthy relationship and are able to create tolerant spaces for their differences. Explored local family connections in the area and their support system. Spouse describes coping mechanisms vaguely, and views keeping a baseline as necessary. Prayed with pt and she thanked me for the visit. Expressed ongoing availability for further pastoral care. PT and spouse appear more uplifted by the visit and overall more engaged.
[2025-01-04] MEDS ORDERED: Ondansetron 4 MG SoluTab MM ONE (15:00)
[2025-01-04] MEDS ORDERED: Lisinopril 10 MG Tab PO SCH (20:00)
--- NOTE | 2025-01-05 04:31 | NUR ---
SHIFT SUMMARY PT IS PCU TRANSFER. ADMITTED WITH TOXIC METABOLIC ENCEPHALOPATHY. PT ALERT AND ORIENTED TIMES 4. PT IS FULL CODE, HAS TELE, SINUS RHYTHM. PT APPEARED TO SLEEP ON AND OFF THROUGH THE NIGHT. IS AT BEDSIDE. PT IS ABLE TO AMBULATE TO TOILET WITH MINIMAL BED IN LOW POSITION, RAILS TIMES TWO, CALL LIGHT WITHIN REACH.
[2025-01-05 04:46] VITALS: BP 168/85
[2025-01-05 04:49] LABS: BASOPHILS ABSOLUTE AUTO 0.05 K/mm3 (0.00-0.23); BASOPHILS PERCENT AUTO 1 % (0-2); EOSINOPHILS ABSOLUTE AUTO 0.23 K/mm3 (0.00-0.68); EOSINOPHILS PERCENT AUTO 3 % (0-6); Hematocrit 30.9 % (33.0-51.0); Hemoglobin 10.3 g/dL (11.5-16.0); IMMATURE GRAN ABSOLUTE AUTO 0.02 K/mm3 (0.00-0.10); IMMATURE GRAN PERCENT AUTO 0 % (0-1); LYMPHOCYTES ABSOLUTE AUTO 2.29 K/mm3 (0.84-5.20); LYMPHOCYTES PERCENT AUTO 33 % (21-46); MONOCYTES ABSOLUTE AUTO 0.63 K/mm3 (0.16-1.47); MONOCYTES PERCENT AUTO 9 % (4-13); Mean Corpuscular HGB 29.8 pg (26.0-34.0); Mean Corpuscular HGB Conc 33.3 g/dL (31.5-36.5); Mean Corpuscular Volume 89 fL (80-100); Mean Platelet Volume 10.1 fL (9.1-12.4); NEUTROPHILS ABSOLUTE AUTO 3.74 K/mm3 (1.96-9.15); NEUTROPHILS PERCENT AUTO 54 % (41-73); Platelet Count 259 K/mm3 (150-400); RDW Coefficient Variation 19.9 % (11.7-14.2); RDW Standard Deviation 64.8 fL (35.1-46.3); Red Blood Cell Count 3.46 M/mm3 (3.80-5.20); White Blood Cell Count 6.96 K/mm3 (4.00-11.30)
[2025-01-05 05:14] LABS: Albumin, Blood 3.2 g/dL (3.4-5.0); Anion Gap 8 mmol/L (3-11); Blood Urea Nitrogen 18 mg/dL (8-24); Bun/Creatinine Ratio 22.4 (12.0-20.0); CO2, Blood 28 mmol/L (21-32); Chloride, Blood 105 mmol/L (98-108); Glomerular Filtration Rate 76 (60-); Glucose, Blood 88 mg/dL (70-99); Phosphorus, Blood 3.9 mg/dL (2.5-4.9); Sodium, Blood 137 mmol/L (136-145)
[2025-01-05 07:54] VITALS: BP 176/86
[2025-01-05] MEDS ORDERED: Lisinopril 5 MG Tab PO SCH (09:00)
[2025-01-05 11:52] VITALS: BP 170/60
--- NOTE | 2025-01-05 13:45 | NUR ---
Irma (pt) is awake and conversatioanl. Pt is eager to be discharged tomorrow and to be reunited with her pet. Pt expresses concerns for her children who are sick and unable to visit her. Pt requests prayed for them. Prayed with pt and she thanked me for the visit. Pt reports having difficulty sleeping last night because of "graveyard shift yelling." Offered compassionate listening. Attending TERESA Roper was attentive and caring. Pt is physically active and interested in visiting a floor she previously stayed at. Pt thanked me for the visit.
[2025-01-05 14:23] VITALS: BP 124/73
[2025-01-05] MEDS ORDERED: Bisacodyl 10 MG Supp PR ONE (14:50)
[2025-01-05 16:44] VITALS: BP 170/89
[2025-01-05 20:56] VITALS: BP 158/73
[2025-01-06 00:09] VITALS: BP 144/68
[2025-01-06 05:40] VITALS: BP 166/79
--- NOTE | 2025-01-06 06:30 | NUR ---
SHIFT SUMMARY ADMITTED WITH TOXIC METABOLIC ENCEPHALOPATHY. PT ALERT AND ORIENTED TIMES 4. PT IS FULL CODE, HAS TELE WITH SINUS RHYTHM 71. PT APPEARED TO SLEEP ON AND OFF THROUGH THE NIGHT. IS AT BEDSIDE. PT IS ABLE TO AMBULATE TO TOILET WITH MINIMAL BED IN LOW POSITION, RAILS TIMES TWO, CALL LIGHT WITHIN REACH. POSSIBLE PT DC TODAY.
[2025-01-06 07:50] VITALS: BP 171/86
[2025-01-06] MEDS ORDERED: Lisinopril 10 MG Tab PO SCH (09:00)
--- NOTE | 2025-01-06 09:56 | NUR ---
Landy (pt) is awake and alert and is with Topher (spouse). Iram expressed gratitude for me stopping by: "I'm glad you did" Pt is eager to be discharged and to see her many animals at home. Pt is in good spirits which is consistent with pervious visits. Conducted brief life review and examined her relationship with her spouse. The two disagree on a number of topics but don't let these differences create a wedge. Provided compassionate listening and encouragment. Prayed with pt and she thanked me for the visit.
--- NOTE | 2025-01-06 11:00 | NUR ---
SHIFT ASSESSMENT THIS RN ASSESSED PATIENT AND AGREES WITH THE SHIFT ASSESSMENT DOCUMENTED BY LAUREN SANTOS RN.
[2025-01-06] MEDS ORDERED: ELIQUIS5 M2 PO (13:56)
[2025-01-06] MEDS ORDERED: VISBIOME 112.51 EACH PO (13:58)
[2025-01-06] MEDS ORDERED: BACTRIM DS TAB1 EAC6 PO (13:59)
--- NOTE | 2025-01-06 15:28 | NUR ---
DC SUMMARY PT DC THIS SHIFT DC INSTRUCTION GONE OVER WITH PT AND PT . WHOM BOTH STATED UNDERSTANDING. PT WAS ESCORTED OUT TO PRIVATE VEHICLE VIA WC BY TERESA.
== END 2025-01-06 15:11 | disposition home or self-care (01) | DRG 689 ==
LOC: ER 17:09 → PCU 17:10 → MEDS 01-03 23:47 → ENPENDDIS 01-04 16:03 → MEDS 01-06 15:11
PROVIDERS: Emergency Medicine; Family Medicine; Internal Medicine; Nurse Practitioner Acute Care; ADMIT Internal Medicine
DX: N39.0 Urinary tract infection, site not specified (principal); G92.8 Other toxic encephalopathy; I48.0 Paroxysmal atrial fibrillation; I25.10 Atherosclerotic heart disease of native coronary artery without angina pectoris; B96.1 Klebsiella pneumoniae [K. pneumoniae] as the cause of diseases classified elsewhere; I12.9 Hypertensive chronic kidney disease with stage 1 through stage 4 chronic kidney disease, or unspecified chronic kidney disease; N18.30 Chronic kidney disease, stage 3 unspecified; E86.0 Dehydration; E78.5 Hyperlipidemia, unspecified; R32 Unspecified urinary incontinence; F17.210 Nicotine dependence, cigarettes, uncomplicated; M41.85 Other forms of scoliosis, thoracolumbar region; R44.1 Visual hallucinations; Z96.612 Presence of left artificial shoulder joint; R53.1 Weakness; G89.29 Other chronic pain; Z79.01 Long term (current) use of anticoagulants; Z79.899 Other long term (current) drug therapy; Z79.82 Long term (current) use of aspirin; Z79.811 Long term (current) use of aromatase inhibitors; Z79.891 Long term (current) use of opiate analgesic; I25.2 Old myocardial infarction; Z98.890 Other specified postprocedural states; Z98.1 Arthrodesis status; Z90.710 Acquired absence of both cervix and uterus; Z86.16 Personal history of COVID-19; Z87.01 Personal history of pneumonia (recurrent)
CPT/HCPCS: 36415; 51701; 70450; 73030; 80048; 80053; 80069; 80320; 81001; 82140; 83735; 84443; 84484; 85025; 87077; 87086; 87186; 93005; 93010; 96365; 96375; 96376; 97162; 97165; 97530; 99285-25; A9270; G0378; J0360; J0696; J2405; J7030

== ENCOUNTER 2025-01-27 18:20 | Inpatient (IN) | payer MEDICARE ==
[~2025-01-27] VITALS: Ht 147.3 cm; Wt 45.5 kg
[~2025-01-27 18:20] MED LIST changes: +BACTRIM DS TAB1 EAC6 PO; +ELIQUIS5 M2 PO; +OXYCODONE-ACET1 EAC3 PO
[2025-01-27 18:59] LABS: BASOPHILS ABSOLUTE AUTO 0.07 K/mm3 (0.00-0.23); BASOPHILS PERCENT AUTO 1 % (0-2); EOSINOPHILS ABSOLUTE AUTO 0.19 K/mm3 (0.00-0.68); EOSINOPHILS PERCENT AUTO 2 % (0-6); Hematocrit 33.7 % (33.0-51.0); Hemoglobin 11.2 g/dL (11.5-16.0); IMMATURE GRAN ABSOLUTE AUTO 0.01 K/mm3 (0.00-0.10); IMMATURE GRAN PERCENT AUTO 0 % (0-1); LYMPHOCYTES ABSOLUTE AUTO 2.01 K/mm3 (0.84-5.20); LYMPHOCYTES PERCENT AUTO 25 % (21-46); MONOCYTES ABSOLUTE AUTO 0.65 K/mm3 (0.16-1.47); MONOCYTES PERCENT AUTO 8 % (4-13); Mean Corpuscular HGB 29.9 pg (26.0-34.0); Mean Corpuscular HGB Conc 33.2 g/dL (31.5-36.5); Mean Corpuscular Volume 90 fL (80-100); Mean Platelet Volume 10.5 fL (9.1-12.4); NEUTROPHILS ABSOLUTE AUTO 5.06 K/mm3 (1.96-9.15); NEUTROPHILS PERCENT AUTO 63 % (41-73); Platelet Count 268 K/mm3 (150-400); RDW Coefficient Variation 17.2 % (11.7-14.2); RDW Standard Deviation 57.8 fL (35.1-46.3); Red Blood Cell Count 3.75 M/mm3 (3.80-5.20); White Blood Cell Count 7.99 K/mm3 (4.00-11.30)
[2025-01-27 19:14] LABS: Albumin, Blood 3.6 g/dL (3.4-5.0); Albumin/Globulin Ratio 1.2 (0.8-1.8); Bilirubin, Total 0.3 mg/dL (0.1-1.0); Bun/Creatinine Ratio 22.5 (12.0-20.0); Calcium, Blood 9.3 mg/dL (8.5-10.1); Creatinine, Blood 0.76 mg/dL (0.40-1.00); Globulin, Blood 2.9 g/dL (2.2-4.0); Potassium, Blood 3.4 mmol/L (3.5-5.5); Total Protein, Blood 6.5 g/dL (6.4-8.2)
[2025-01-27 19:22] LABS: Prothrombin Time Results >90.0 Sec (9.7-11.5)
[2025-01-27 19:23] LABS: International Normalized Ratio >10.00
[2025-01-27] MEDS ORDERED: FentaNYL Citrate 50 MCG/ML 2 ML Injection IV ONE (19:25)
[2025-01-27] MEDS ORDERED: Morphine Sulfate 4 MG/1 ML Injection IV ONE (20:40)
[2025-01-27] MEDS ORDERED: JANTOVEN5 M2 PO (21:29)
[2025-01-27] MEDS ORDERED: METOPROLOL SUCC25 MG PO (21:31)
[2025-01-27] MEDS ORDERED: OXYB5 PO (21:32)
[2025-01-27] MEDS ORDERED: BACLOFEN10 M4 PO (21:34)
[2025-01-27] MEDS ORDERED: FERSU300 PO (21:34)
[2025-01-27] MEDS ORDERED: HYDROmorphone HCl/Pf 1MG SYR IV ONE (23:00)
[2025-01-27] MEDS ORDERED: Phytonadione 5 MG in NS 50 ML IV ONE (23:00)
[2025-01-27] MEDS ORDERED: FentaNYL Citrate 50 MCG/ML 2 ML Injection IV PRN (23:40)
[2025-01-28] MEDS ORDERED: Potassium Chloride 40 MEQ in NS 250 ML IV ONE (01:50)
[2025-01-28] MEDS ORDERED: Potassium Chloride 20 MEQ TabCR PO ONE (03:10)
[2025-01-28] MEDS ORDERED: HYDROmorphone HCl/Pf 1MG SYR IV PRN ×3 (03:10→11:40)
[2025-01-28] MEDS ORDERED: HydrALAZINE HCl 20 MG / ML 1ML Vial IV ONE (03:10)
[2025-01-28] MEDS ORDERED: NS 1,000 ML IV SCH (03:15)
[2025-01-28] MEDS ORDERED: Ondansetron HCl 2 MG / ML 2ML Vial IV PRN ×2 (03:15→04:00)
[2025-01-28 03:26] VITALS: BP 208/116
[2025-01-28 04:47] LABS: BASOPHILS ABSOLUTE AUTO 0.07 K/mm3 (0.00-0.23); BASOPHILS PERCENT AUTO 1 % (0-2); EOSINOPHILS ABSOLUTE AUTO 0.16 K/mm3 (0.00-0.68); EOSINOPHILS PERCENT AUTO 2 % (0-6); Hemoglobin 11.1 g/dL (11.5-16.0); IMMATURE GRAN ABSOLUTE AUTO 0.03 K/mm3 (0.00-0.10); IMMATURE GRAN PERCENT AUTO 0 % (0-1); LYMPHOCYTES ABSOLUTE AUTO 2.16 K/mm3 (0.84-5.20); LYMPHOCYTES PERCENT AUTO 24 % (21-46); MONOCYTES ABSOLUTE AUTO 0.64 K/mm3 (0.16-1.47); MONOCYTES PERCENT AUTO 7 % (4-13); Mean Corpuscular HGB Conc 33.6 g/dL (31.5-36.5); Mean Corpuscular Volume 89 fL (80-100); Mean Platelet Volume 10.1 fL (9.1-12.4); NEUTROPHILS ABSOLUTE AUTO 6.14 K/mm3 (1.96-9.15); NEUTROPHILS PERCENT AUTO 67 % (41-73); Platelet Count 236 K/mm3 (150-400); RDW Coefficient Variation 17.2 % (11.7-14.2); RDW Standard Deviation 56.8 fL (35.1-46.3)
[2025-01-28 04:53] VITALS: BP 171/91
[2025-01-28 05:06] LABS: Albumin, Blood 3.7 g/dL (3.4-5.0); Albumin/Globulin Ratio 1.1 (0.8-1.8); Bilirubin, Total 0.5 mg/dL (0.1-1.0); Bun/Creatinine Ratio 16.7 (12.0-20.0); Calcium, Blood 9.1 mg/dL (8.5-10.1); Creatinine, Blood 0.66 mg/dL (0.40-1.00); Globulin, Blood 3.3 g/dL (2.2-4.0)
[2025-01-28 05:09] LABS: International Normalized Ratio 1.49
[2025-01-28 05:55] LABS: Prothrombin Time Results 15.5 Sec (9.7-11.5)
[2025-01-28] MEDS ORDERED: FentaNYL Citrate 50 MCG/ML 2 ML Injection IV PRN (06:00)
[2025-01-28 07:32] VITALS: BP 171/88
[2025-01-28] MEDS ORDERED: Ketorolac Tromethamine 30mg Vial IV PRN (08:25)
[2025-01-28] MEDS ORDERED: Lisinopril 10 MG Tab PO SCH (09:00)
[2025-01-28] MEDS ORDERED: Metoprolol Succinate 25 MG TABCR PO SCH ×2 (09:00→21:00)
[2025-01-28] MEDS ORDERED: oxyBUTYnin chloride 5 MG TAB PO SCH (09:00)
[2025-01-28] MEDS ORDERED: Isosorbide Mononitrate 60 MG TABCR PO SCH (09:00)
[2025-01-28] MEDS ORDERED: Isosorbide Mono30 MG PO (10:10)
[2025-01-28 10:20] LABS: Hematocrit 34.7 % (33.0-51.0); Hemoglobin 11.5 g/dL (11.5-16.0)
[2025-01-28 10:31] LABS: International Normalized Ratio 1.25; Prothrombin Time Results 13.2 Sec (9.7-11.5)
[2025-01-28 10:48] VITALS: BP 167/92
[2025-01-28] MEDS ORDERED: Lisinopril 10 MG Tab PO ONE ×2 (11:00→11:40)
[2025-01-28] MEDS ORDERED: Metoprolol Succinate 25 MG TABCR PO ONE (11:40)
[2025-01-28 16:03] LABS: Hematocrit 32.1 % (33.0-51.0); Hemoglobin 10.4 g/dL (11.5-16.0)
[2025-01-28 16:07] VITALS: BP 179/87
[2025-01-28 16:17] LABS: International Normalized Ratio 1.17; Prothrombin Time Results 12.4 Sec (9.7-11.5)
--- NOTE | 2025-01-28 17:40 | NUR ---
SHIFT SUMMARY PT A&OX4. PT ADMITTED DUE TO R HIP HEMATOMA, PT REPORTS PAIN IN R HIP, PAIN MANAGED PER EMAR. PT REPORTS WANTING TO SEE SPIRITUAL CARE, REPORTED TO PT GOVERNMENT AFFAIRS SPECIALIST COMES FOR EMERGENCIES ON WEEKENDS, SPIRITUAL CARE ORDERED AND WILL PASS ON IN REPORT TO NIGHT RN. PT EATS ADEQUATE. PT IS A SBA AND DID A STAND PIVOT TO BSC. ENCOURAGED PT TO HAVE MOBILITY, PT REFUSED FURTHER MOBILITY. PT HAS PERWICK DUE TO PAIN, PERWICK CHANGED PRN, SET ON CONT SUCTION. PT RECEIVED A BAG OF NS TODAY THROUGH IV. MEDS WERE RECONSILED THIS AM. ONLY A CERTAIN AMOUNT OF PT HOME MEDS WERE ORDERED THIS AM. NOTIFIED DR. SHETH MEDS UPDATED. PT REFUSED MEDS DUE TO "NOT HAVING ALL OF HER MEDS AT ONCE." PT EDUCATED ON TAKING HER BP MEDS DUE TO HER BP BEING 171/88. PT AGREEABLE TO HAVE "LISINOPRIL BUT STATED TAKES METOPROLOL AT NIGHT." METOPROLOL RETIMED FOR EVENING PER PT REQUEST. NOTIFIED. LAST BLOOD PRESSURE WAS TAKEN AT 1607 AND WAS 179/87. DR. SHETH NOTIFIED AND "PLAN IS FOR PT TO RESTART REST OF HOME MEDS TOMORROW" PER DR. SHETH. DR. SHETH ALSO NOTIFIED ABOUT THIS AM POTASSIUM, NO NEW ORDERS AT THIS TIME. PT IN BED, BED IN LOWEST POSITION, CALL LIGHT IN REACH.
[2025-01-28] MEDS ORDERED: Warfarin Sodium 3 MG Tab PO ONE (18:00)
--- NOTE | 2025-01-28 19:39 | NUR ---
NOTE PT REFUSED, COUMADIN DOSE AT 1800. CALLED DR. SHETH AND NOTIFIED. PT EDUCATED ON IMPORTANCE OF MEDICATION. PT THEN DECIDED SHE WANTED TO TAKE DOSE. DOSE WAS GIVEN AT 1900.
[2025-01-28 19:51] VITALS: BP 163/82
[2025-01-29 00:55] VITALS: BP 150/91
--- NOTE | 2025-01-29 03:15 | NUR ---
SHIFT SUMMARY PATIENT HAS APPEARED TO SLEEP COMFORTABLY TONIGHT. SHE HAS NOT REQUESTED ANY PAIN MEDICATION. SHE GOT UP TO THE BEDSIDE COMMODE WITH ASSISTANCE X1 SO FAR ON THIS SHIFT. PATIENT IS ORIENTED X4. SHE HAS HER CALL LIGHT WITHIN REACH. SAFETY PRECAUTIONS ARE BEING MAINTAINED.
[2025-01-29 05:51] VITALS: BP 178/90
[2025-01-29 08:08] VITALS: BP 171/84
[2025-01-29] MEDS ORDERED: Lisinopril 10 MG Tab PO SCH (09:00)
[2025-01-29 10:17] LABS: International Normalized Ratio 1.36; Prothrombin Time Results 14.2 Sec (9.7-11.5)
[2025-01-29] MEDS ORDERED: Lisinopril 10 MG Tab PO ONE (10:30)
[2025-01-29 17:32] VITALS: BP 123/63
[2025-01-29] MEDS ORDERED: Warfarin Sodium 3 MG Tab PO ONE (18:00)
--- NOTE | 2025-01-29 19:42 | NUR ---
SHIFT SUMMARY PT A&OX4. PT ADMITTED DUE TO R HIP HEMATOMA. PT REPORTS R HIP PAIN, PAIN MANAGED PER EMAR. PT EATS ADEQUATE. PT HAS SOME INCONTINENCE, ATTENDS IN PLACE AND CHANGED PRN. PT IS A SBA WITH FWW. PT WENT FOR A WALK TODAY DOWN TO THE ELEVATORS AND BACK. THIS EVENING, PT LOWERED SELF ON FLOOR, STATED HAD TO CLEAN UP WATER ON FLOOR. ANOTHER RN STATED PT WAS CALLING OUT FOR HELP TO GET ASSISTANCE WITH GETTING BACK UP. ENCOURAGED PT TO USE CALL LIGHT WHEN NEED HELP OR AMBULATING. BED ALARM ON. PT IN BED. BED IN LOWEST POSITION, CALL LIGHT IN REACH.
[2025-01-29 19:49] VITALS: BP 155/74
[2025-01-30] VITALS: BP 135/72
--- NOTE | 2025-01-30 03:07 | NUR ---
SHIFT SUMMARY PATIENT HAS APPEARED TO SLEEP COMFORTABLY DURING THE NIGHT. SHE HAS BEEN MEDICATED X2 ON THIS SHIFT FOR PAIN WITH 1 MG OF DILAUDID. VSS. PATIENT IS ORIENTED X4. SHE HAS HER CALL LIGHT WITHIN REACH. SAFETY PRECAUTIONS ARE BEING MAINTAINED.
[2025-01-30 03:48] VITALS: BP 127/70
[2025-01-30] MEDS ORDERED: diphenhydrAMINE HCl 12.5 MG/5 ML 5MLUDC (Alcohol/Dye Free) PO PRN ×2 (04:10→04:35)
[2025-01-30] MEDS ORDERED: DiphenhydrAMINE HCL 25 MG Cap PO PRN (04:30)
[2025-01-30 05:36] LABS: BASOPHILS ABSOLUTE AUTO 0.06 K/mm3 (0.00-0.23); BASOPHILS PERCENT AUTO 1 % (0-2); EOSINOPHILS ABSOLUTE AUTO 0.19 K/mm3 (0.00-0.68); EOSINOPHILS PERCENT AUTO 3 % (0-6); Hematocrit 30.7 % (33.0-51.0); Hemoglobin 10.1 g/dL (11.5-16.0); IMMATURE GRAN ABSOLUTE AUTO 0.01 K/mm3 (0.00-0.10); IMMATURE GRAN PERCENT AUTO 0 % (0-1); LYMPHOCYTES ABSOLUTE AUTO 2.09 K/mm3 (0.84-5.20); LYMPHOCYTES PERCENT AUTO 33 % (21-46); MONOCYTES ABSOLUTE AUTO 0.66 K/mm3 (0.16-1.47); MONOCYTES PERCENT AUTO 10 % (4-13); Mean Corpuscular HGB 30.1 pg (26.0-34.0); Mean Corpuscular HGB Conc 32.9 g/dL (31.5-36.5); Mean Corpuscular Volume 92 fL (80-100); Mean Platelet Volume 10.1 fL (9.1-12.4); NEUTROPHILS ABSOLUTE AUTO 3.31 K/mm3 (1.96-9.15); NEUTROPHILS PERCENT AUTO 52 % (41-73); Platelet Count 215 K/mm3 (150-400); RDW Coefficient Variation 16.7 % (11.7-14.2); RDW Standard Deviation 56.3 fL (35.1-46.3); Red Blood Cell Count 3.35 M/mm3 (3.80-5.20); White Blood Cell Count 6.32 K/mm3 (4.00-11.30)
[2025-01-30 05:50] LABS: International Normalized Ratio 2.19; Prothrombin Time Results 22.1 Sec (9.7-11.5)
[2025-01-30 05:57] LABS: Albumin, Blood 3.4 g/dL (3.4-5.0); Albumin/Globulin Ratio 1.1 (0.8-1.8); Bilirubin, Total 0.4 mg/dL (0.1-1.0); Bun/Creatinine Ratio 15.2 (12.0-20.0); Calcium, Blood 9.3 mg/dL (8.5-10.1); Creatinine, Blood 0.86 mg/dL (0.40-1.00); Globulin, Blood 3.1 g/dL (2.2-4.0); Potassium, Blood 4.9 mmol/L (3.5-5.5); Total Protein, Blood 6.5 g/dL (6.4-8.2)
[2025-01-30 08:16] VITALS: BP 172/81
[2025-01-30] MEDS ORDERED: Lisinopril 20 MG Tab PO SCH (09:00)
--- NOTE | 2025-01-30 11:40 | NUR ---
[facility] VISITING WITH PT.
--- NOTE | 2025-01-30 13:28 | NUR ---
Upon receiving a referral for spiritual care, I visited the pt. 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 She discusses her personal hopes and fears. I provided therapeutic listening, gentle auto travel counselor and prayer. She responded well and showed signs of greater peace.
--- NOTE | 2025-01-30 16:33 | NUR ---
KATHI IS ALERT & ORIENTED X4, BUT CAN BE CONFUSED OR FORGETFUL AT TIMES. SOMETIMES SHE NEEDS REDIRECTION DURING CONVERSATION TO REMAINED FOCUSED. ADMITTED FOR RIGHT HIP PAIN. HER PAIN IS RELIEVED WITH PRN MEDICATIONS. DR. AMADOR ROUNDED, PLAN IS TO POSSIBLY DISCHARGE WITH [facility] BECAUSE THE [employer] THAT [facility] QUOTED FOR PT IS $100/MONTH, WHICH PT STATES SHE CANNOT AFFORD. PT BECAME DISTRESSED TOWARDS THE END OF THE SHIFT, WORRIED ABOUT MEDICAL BILLS AFTER MULTIPLE PHONE CALLS WITH HER , YADI. SHE REMAINS ON ROOM AIR, IV TO RFA. CONT/INC. WALKS LAPS AROUND THE UNIT WITH HER FWW. GOOD APPETITE.
[2025-01-30 16:40] VITALS: BP 183/90
[2025-01-30] MEDS ORDERED: LORazepam 0.5 MG Tab PO ONE (18:00)
[2025-01-30] MEDS ORDERED: Warfarin Sodium 1 MG Tab PO ONE (18:00)
[2025-01-30 20:25] VITALS: BP 178/83
[2025-01-31 00:27] VITALS: BP 155/91
[2025-01-31 04:06] VITALS: BP 151/70
[2025-01-31 07:16] VITALS: BP 187/97
[2025-01-31 08:13] LABS: International Normalized Ratio 2.92; Prothrombin Time Results 28.9 Sec (9.7-11.5)
[2025-01-31 11:53] VITALS: BP 143/78
--- NOTE | 2025-01-31 13:41 | NUR ---
Spiritual care visit conducted. The patient is sitting on a chair and alert. 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 She tells me about her and his deep worry for her and how it is endearing and a little draining as well. She speaks of the concerns she has as the future unfolds. She is spuncky and kind as she shares about her philosophies of life, taoist, politics and family. I provided therapeutic listening, and prayer. She responed well and displayed evidence of greater peace. I will coninue to remain available to patient and family.
[2025-01-31 15:16] VITALS: BP 128/65
--- NOTE | 2025-01-31 17:20 | NUR ---
PT AOX4, VSS AND ON RA. PT IS INDERPENDENT IN THE ROOM. PT HAD C/O PAIN THAT HAD RELIEF FROM PRN MEDICATIONS. SEE EMAR FOR DETAILS.
[2025-01-31] MEDS ORDERED: Warfarin Sodium 1 MG Tab PO SCH (18:00)
[2025-01-31 19:27] VITALS: BP 135/68
[2025-02-01] VITALS (7 sets, daily range): BP systolic 122–183; BP diastolic 61–90
--- NOTE | 2025-02-01 03:49 | NUR ---
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 has an iv locked on her rigt Acf, line flushed with normal saline,and patent. site of haemaonn where inspected nil reddness ' mild swelling. patient demanded ice cream chocolate and vanilla where served. she maintain a calm shift.
[2025-02-01] MEDS ORDERED: HydrALAZINE HCl 20 MG / ML 1ML Vial IV PRN (05:00)
[2025-02-01 05:31] LABS: International Normalized Ratio 2.31; Prothrombin Time Results 23.2 Sec (9.7-11.5)
[2025-02-01] MEDS ORDERED: Acetaminophen 325 MG TABLET PO PRN (07:50)
[2025-02-01 09:59] LABS: Source, Urine Clean Catch
[2025-02-01 10:09] LABS: Appearance, Urine Clear (Clear); Bilirubin, Urine Neg (Neg); Blood, Urine Neg (Neg); Color, Urine Yellow (P-Yellow); Glucose Qualitative, Urine Neg (Neg); Ketones, Urine Neg (Neg); Leukocyte Esterase, Urine Neg (Neg); Nitrite, Urine Neg (Neg); Protein, Urine Neg (Neg); Urobilinogen, Urine NORM (Normal)
--- NOTE | 2025-02-01 11:28 | NUR ---
Patient is discouraged today because she is "feeling more sick" and she is not going to discharge today. She is quiet and not as witty today. I ask questions about the things she that is thankful for, what she is looking forward to and what is good right now. She sparked a little smile and story or two but remained fairly flat. I provided therapeutic listening, gentle probation counselor and prayer. The patient responded okay and showed mild signs of an improved mood and outlook. I will continue to remain available to patient and family.
[2025-02-01] MEDS ORDERED: Warfarin Sodium 2.5 MG Tab PO ONE (18:00)
[2025-02-01] MEDS ORDERED: Artificial Tear Opth Oint 3.5 GM BOTHEYES SCH (21:00)
[2025-02-02 03:57] VITALS: BP 152/80
--- NOTE | 2025-02-02 05:02 | NUR ---
SHIFT SUMMARY PT SLEPT INTERMITTENTLY THROUGH THE NIGHT. AT BEDSIDE. UP INDEPENDENTLY IN ROOM WITH A STEADY GAIT. RIGHT HIP HEMATOMA CAN BE VISUALIZED, BUT NO BRUISING. PT AFEBRILE THROUGH THE NIGHT. PT ANTICIPATING D/C HOME TODAY. BED IN LOWEST POSITION, CALL LIGHT WITHIN REACH, SIDERAILS UP X2.
[2025-02-02 05:52] LABS: BASOPHILS ABSOLUTE AUTO 0.05 K/mm3 (0.00-0.23); BASOPHILS PERCENT AUTO 1 % (0-2); EOSINOPHILS ABSOLUTE AUTO 0.17 K/mm3 (0.00-0.68); EOSINOPHILS PERCENT AUTO 4 % (0-6); Hematocrit 34.9 % (33.0-51.0); Hemoglobin 11.5 g/dL (11.5-16.0); IMMATURE GRAN ABSOLUTE AUTO 0.01 K/mm3 (0.00-0.10); IMMATURE GRAN PERCENT AUTO 0 % (0-1); LYMPHOCYTES PERCENT AUTO 24 % (21-46); MONOCYTES ABSOLUTE AUTO 0.64 K/mm3 (0.16-1.47); MONOCYTES PERCENT AUTO 15 % (4-13); Mean Corpuscular HGB 30.2 pg (26.0-34.0); Mean Corpuscular Volume 92 fL (80-100); Mean Platelet Volume 10.3 fL (9.1-12.4); NEUTROPHILS PERCENT AUTO 55 % (41-73); Platelet Count 244 K/mm3 (150-400); RDW Coefficient Variation 15.9 % (11.7-14.2); RDW Standard Deviation 52.9 fL (35.1-46.3); Red Blood Cell Count 3.81 M/mm3 (3.80-5.20); White Blood Cell Count 4.17 K/mm3 (4.00-11.30)
[2025-02-02 06:01] LABS: Prothrombin Time Results 20.3 Sec (9.7-11.5)
[2025-02-02 06:19] LABS: Albumin, Blood 3.6 g/dL (3.4-5.0); Anion Gap 9 mmol/L (3-11); Blood Urea Nitrogen 17 mg/dL (8-24); Bun/Creatinine Ratio 16.7 (12.0-20.0); CO2, Blood 25 mmol/L (21-32); Calcium, Blood 9.5 mg/dL (8.5-10.1); Chloride, Blood 105 mmol/L (98-108); Creatinine, Blood 1.02 mg/dL (0.40-1.00); Glomerular Filtration Rate 57 (60-); Glucose, Blood 96 mg/dL (70-99); Phosphorus, Blood 3.5 mg/dL (2.5-4.9); Potassium, Blood 4.2 mmol/L (3.5-5.5); Sodium, Blood 135 mmol/L (136-145)
[2025-02-02 07:39] VITALS: BP 159/74
--- NOTE | 2025-02-02 12:31 | NUR ---
DISCHARGE NOTE PT D/C HOME AT 1100. PT AND PT'S PROVIDED W/ VERBAL AND WRITTEN INSTRUCTIONS AND REPORTED UNDERSTANDING. PT A&OX4, VSS, AMB IND, TOLERATING PO, VOIDING, AND PAIN MANAGED PER EMAR. BELONGINGS WERE RETURNED AND PT ESCOURTED OUT VIA W/C BY .
[2025-02-02] MEDS ORDERED: Warfarin Sodium 4 MG Tab PO SCH (18:00)
== END 2025-02-02 11:03 | disposition home or self-care (01) | DRG 554 ==
LOC: ER 18:20 → ERHOLD 18:21 → MEDS 18:21 → ER 18:21 → MEDS 18:21 → ERHOLD 18:21 → MEDS 01-28 03:23 → ENPENDDIS 02-02 10:01 → MEDS 02-02 11:03
PROVIDERS: Emergency Medicine; Family Medicine; Internal Medicine; ADMIT Internal Medicine
DX: M25.051 Hemarthrosis, right hip (principal); R79.1 Abnormal coagulation profile; F17.210 Nicotine dependence, cigarettes, uncomplicated; E78.5 Hyperlipidemia, unspecified; I10 Essential (primary) hypertension; I25.10 Atherosclerotic heart disease of native coronary artery without angina pectoris; E87.6 Hypokalemia; M62.838 Other muscle spasm; D50.9 Iron deficiency anemia, unspecified; M41.85 Other forms of scoliosis, thoracolumbar region; R32 Unspecified urinary incontinence; Z96.612 Presence of left artificial shoulder joint; R50.9 Fever, unspecified; I48.0 Paroxysmal atrial fibrillation; K59.09 Other constipation; T40.2X5A Adverse effect of other opioids, initial encounter; Z79.891 Long term (current) use of opiate analgesic; Z79.899 Other long term (current) drug therapy; Z79.811 Long term (current) use of aromatase inhibitors; Z79.01 Long term (current) use of anticoagulants; Z79.82 Long term (current) use of aspirin; I25.2 Old myocardial infarction; Z95.5 Presence of coronary angioplasty implant and graft; Z90.89 Acquired absence of other organs; Z98.1 Arthrodesis status; Z90.710 Acquired absence of both cervix and uterus; Z87.440 Personal history of urinary (tract) infections
CPT/HCPCS: 36415; 36430; 72192; 73502; 73706; 76882; 80053; 80069; 81003; 82728; 83540; 83550; 83880; 85014; 85018; 85025; 85610; 85730; 86900; 86901; 96365-59; 96375; 96375-59; 96376; 99285-25; A6590; A9270; G0378; J0360; J1171; J2270; J2405; J3010; J3430; J3480; J7030; J7050; P9059; Q9967

== ENCOUNTER → 2025-02-07 | Outpatient (CLI) | payer MEDICARE ==
[~2025-02-07] MED LIST changes: +BACLOFEN10 M4 PO; +FERSU300 PO; +JANTOVEN5 M2 PO; +METOPROLOL SUCC25 MG PO
[2025-02-08 09:32] LABS: Stool Occult Bld Immuno 1 Negative (NEGATIVE)
== END ==
LOC: LAB SHORT 11:30 → LAB 11:30
PROVIDERS: Family Medicine
DX: Z12.11 Encounter for screening for malignant neoplasm of colon (principal); Z12.12 Encounter for screening for malignant neoplasm of rectum
CPT/HCPCS: G0328

== ENCOUNTER 2025-03-03 17:00 | Emergency (ER) | payer MEDICARE ==
[~2025-03-03] VITALS: Ht 147.3 cm; Wt 42.6 kg
[2025-03-03 19:09] LABS: BASOPHILS ABSOLUTE AUTO 0.05 K/mm3 (0.00-0.23); BASOPHILS PERCENT AUTO 1 % (0-2); EOSINOPHILS ABSOLUTE AUTO 0.18 K/mm3 (0.00-0.68); EOSINOPHILS PERCENT AUTO 2 % (0-6); Hematocrit 36.5 % (33.0-51.0); Hemoglobin 12.3 g/dL (11.5-16.0); IMMATURE GRAN ABSOLUTE AUTO 0.01 K/mm3 (0.00-0.10); IMMATURE GRAN PERCENT AUTO 0 % (0-1); LYMPHOCYTES ABSOLUTE AUTO 2.74 K/mm3 (0.84-5.20); LYMPHOCYTES PERCENT AUTO 37 % (21-46); MONOCYTES PERCENT AUTO 8 % (4-13); Mean Corpuscular HGB Conc 33.7 g/dL (31.5-36.5); Mean Corpuscular Volume 92 fL (80-100); NEUTROPHILS ABSOLUTE AUTO 3.83 K/mm3 (1.96-9.15); NEUTROPHILS PERCENT AUTO 52 % (41-73); Platelet Count 249 K/mm3 (150-400); RDW Coefficient Variation 14.8 % (11.7-14.2); RDW Standard Deviation 49.7 fL (35.1-46.3); Red Blood Cell Count 3.97 M/mm3 (3.80-5.20); White Blood Cell Count 7.41 K/mm3 (4.00-11.30)
[2025-03-03 19:30] LABS: Albumin, Blood 3.7 g/dL (3.4-5.0); Albumin/Globulin Ratio 1.2 (0.8-1.8); Bilirubin, Total 0.3 mg/dL (0.1-1.0); Bun/Creatinine Ratio 16.9 (12.0-20.0); Calcium, Blood 9.5 mg/dL (8.5-10.1); Creatinine, Blood 0.77 mg/dL (0.40-1.00); Globulin, Blood 3.1 g/dL (2.2-4.0); Potassium, Blood 3.3 mmol/L (3.5-5.5); Total Protein, Blood 6.8 g/dL (6.4-8.2)
[2025-03-03 20:20] LABS: Source, Urine Clean Catch
[2025-03-03 20:24] LABS: Appearance, Urine Clear (Clear); Bilirubin, Urine Neg (Neg); Blood, Urine Neg (Neg); Glucose Qualitative, Urine Neg (Neg); Ketones, Urine Neg (Neg); Leukocyte Esterase, Urine Neg (Neg); Nitrite, Urine Neg (Neg); Protein, Urine Neg (Neg); Urobilinogen, Urine NORM (Normal)
[2025-03-03 20:37] LABS: Color, Urine Pale Yellow (P-Yellow)
[2025-03-03] MEDS ORDERED: Diphth,Pertuss(Acell),Tet Vac 0.5 ML VIAL IM ONE (21:25)
[2025-03-03] MEDS ORDERED: Metoprolol Succinate 25 MG TABCR PO ONE (21:25)
[2025-03-03] MEDS ORDERED: Atorvastatin 10 MG Tab PO ONE (21:25)
[2025-03-03 22:00] VITALS: BP 182/88
== END 2025-03-03 22:14 | disposition home or self-care (01) ==
LOC: ER 17:00
PROVIDERS: Student in an Organized Health Care Education/Training Program
DX: S80.212A Abrasion, left knee, initial encounter (principal); R07.9 Chest pain, unspecified; M17.0 Bilateral primary osteoarthritis of knee; F17.210 Nicotine dependence, cigarettes, uncomplicated; W18.30XA Fall on same level, unspecified, initial encounter; Z79.899 Other long term (current) drug therapy; Z79.01 Long term (current) use of anticoagulants
CPT/HCPCS: 71046; 73562-LT; 73562-RT; 80053; 81003; 83690; 84484; 85025; 85730; 90471; 90715; 93005; 93010; 99285-25; A9270

== ENCOUNTER → 2025-03-29 | Outpatient (CLI) | payer MEDICARE ==
[~2025-03-29] MED LIST changes: +LISINOPRIL-HCT1 EACH PO
[2025-03-29 15:25] LABS: BASOPHILS ABSOLUTE AUTO 0.06 K/mm3 (0.00-0.23); BASOPHILS PERCENT AUTO 1 % (0-2); EOSINOPHILS ABSOLUTE AUTO 0.14 K/mm3 (0.00-0.68); EOSINOPHILS PERCENT AUTO 2 % (0-6); Hematocrit 38.5 % (33.0-51.0); Hemoglobin 12.6 g/dL (11.5-16.0); IMMATURE GRAN ABSOLUTE AUTO 0.03 K/mm3 (0.00-0.10); IMMATURE GRAN PERCENT AUTO 0 % (0-1); LYMPHOCYTES ABSOLUTE AUTO 2.13 K/mm3 (0.84-5.20); LYMPHOCYTES PERCENT AUTO 24 % (21-46); MONOCYTES ABSOLUTE AUTO 0.51 K/mm3 (0.16-1.47); MONOCYTES PERCENT AUTO 6 % (4-13); Mean Corpuscular HGB 31.5 pg (26.0-34.0); Mean Corpuscular HGB Conc 32.7 g/dL (31.5-36.5); Mean Corpuscular Volume 96 fL (80-100); Mean Platelet Volume 10.7 fL (9.1-12.4); NEUTROPHILS ABSOLUTE AUTO 5.93 K/mm3 (1.96-9.15); NEUTROPHILS PERCENT AUTO 67 % (41-73); Platelet Count 259 K/mm3 (150-400); RDW Coefficient Variation 15.3 % (11.7-14.2); RDW Standard Deviation 54.2 fL (35.1-46.3)
[2025-03-29 19:01] LABS: Percent Saturation 41.5 % (15.0-50.0)
== END ==
LOC: LAB 11:15 → LAB SHORT 11:15
PROVIDERS: Internal Medicine Hematology & Oncology
DX: E61.1 Iron deficiency (principal)
CPT/HCPCS: 82728; 83540; 83550; 85025

== ENCOUNTER 2025-06-20 03:50 | Emergency (ER) | payer MEDICARE ==
[~2025-06-20] VITALS: Ht 147.3 cm; Wt 43.1 kg
[2025-06-20] MEDS ORDERED: Ondansetron HCl 2 MG / ML 2ML Vial IV PRN (04:55)
[2025-06-20 05:43] LABS: BASOPHILS ABSOLUTE AUTO 0.07 K/mm3 (0.00-0.23); BASOPHILS PERCENT AUTO 1 % (0-2); EOSINOPHILS ABSOLUTE AUTO 0.09 K/mm3 (0.00-0.68); EOSINOPHILS PERCENT AUTO 1 % (0-6); Hematocrit 33.2 % (33.0-51.0); Hemoglobin 11.6 g/dL (11.5-16.0); IMMATURE GRAN ABSOLUTE AUTO 0.03 K/mm3 (0.00-0.10); IMMATURE GRAN PERCENT AUTO 0 % (0-1); LYMPHOCYTES ABSOLUTE AUTO 1.37 K/mm3 (0.84-5.20); LYMPHOCYTES PERCENT AUTO 12 % (21-46); MONOCYTES ABSOLUTE AUTO 0.84 K/mm3 (0.16-1.47); MONOCYTES PERCENT AUTO 8 % (4-13); Mean Corpuscular HGB Conc 34.9 g/dL (31.5-36.5); Mean Corpuscular Volume 93 fL (80-100); NEUTROPHILS ABSOLUTE AUTO 8.78 K/mm3 (1.96-9.15); NEUTROPHILS PERCENT AUTO 79 % (41-73); NRBC ABSOLUTE 0.00 K/mm3 (0.00-0.02); NRBC Auto 0.0 /100 WBC (0.0-0.2); Platelet Count 214 K/mm3 (150-400); RDW Coefficient Variation 13.8 % (11.7-14.2); RDW Standard Deviation 47.6 fL (35.1-46.3)
[2025-06-20 05:58] LABS: Alanine Aminotransfer (ALT/SGP 17.0 U/L (12-78); Albumin, Blood 3.6 g/dL (3.4-5.0); Albumin/Globulin Ratio 1.1 (0.8-1.8); Anion Gap 7.0 mmol/L (3-11); Aspartate Aminotrans (AST/SGOT 20.0 U/L (12-37); Bilirubin, Total 0.7 mg/dL (0.1-1.0); Blood Urea Nitrogen 26.0 mg/dL (8-24); CO2, Blood 26.0 mmol/L (21-32); Calcium, Blood 9.1 mg/dL (8.5-10.1); Chloride, Blood 107.0 mmol/L (98-108); Creatinine, Blood 1.31 mg/dL (0.40-1.00); Globulin, Blood 3.2 g/dL (2.2-4.0); Glucose, Blood 97.0 mg/dL (70-99); Potassium, Blood 3.7 mmol/L (3.5-5.5); Sodium, Blood 136.0 mmol/L (136-145); Total Protein, Blood 6.8 g/dL (6.4-8.2)
[2025-06-20 07:13] LABS: Source, Urine Clean Catch
[2025-06-20 07:23] LABS: Bilirubin, Urine Neg (Neg); Color, Urine Yellow (P-Yellow); Glucose Qualitative, Urine Neg (Neg); Ketones, Urine Neg (Neg); Leukocyte Esterase, Urine 3+ (Neg); Protein, Urine 3+ (Neg); Specific Gravity, Urine 1.010 (1.003-1.022); Urobilinogen, Urine NORM (Normal)
[2025-06-20] MEDS ORDERED: FentaNYL Citrate 50 MCG/ML 2 ML Injection IV ONE (07:35)
[2025-06-20 07:38] LABS: Red Blood Cells, Urine TNTC /hpf (0-2); White Blood Cells, Urine TNTC /hpf (0-5)
[2025-06-20 07:53] LABS: Prothrombin Time Results 19.3 Sec (9.7-11.5)
[2025-06-20] MEDS ORDERED: NS 1,000 ML IV SCH (08:30)
[2025-06-20 09:45] VITALS: BP 215/125
[2025-06-20] MEDS ORDERED: Keflex250 MG PO (10:29)
[2025-06-20] MEDS ORDERED: Ondansetron HCl 2 MG / ML 2ML Vial IV ONE (10:30)
[2025-06-20] MEDS ORDERED: ONDA4ODT MM (10:33)
== END 2025-06-20 10:48 | disposition home or self-care (01) ==
LOC: ER 03:50
PROVIDERS: Emergency Medicine; Physician Assistant
DX: N30.90 Cystitis, unspecified without hematuria (principal); I70.1 Atherosclerosis of renal artery; I48.91 Unspecified atrial fibrillation; I25.10 Atherosclerotic heart disease of native coronary artery without angina pectoris; F17.210 Nicotine dependence, cigarettes, uncomplicated; Z79.01 Long term (current) use of anticoagulants; Z79.899 Other long term (current) drug therapy
CPT/HCPCS: 74177; 76705; 80053; 81001; 83690; 85025; 85610; 85730; 87077; 87086; 87186; 96361; 96374-59; 96375; 96376; 99285-25; J2405; J3010; J7030; Q9967

== ENCOUNTER → 2025-06-28 | Outpatient (CLI) | payer MEDICARE ==
[~2025-06-28] MED LIST changes: +Keflex250 MG PO
== END ==
LOC: LAB 11:55 → LAB SHORT 11:55
DX: N39.0 Urinary tract infection, site not specified (principal)
CPT/HCPCS: 87086

== ENCOUNTER → 2025-08-24 | Outpatient (CLI) | payer MEDICARE ==
[2025-08-24 11:25] LABS: Source, Urine Clean Catch
[2025-08-24 12:54] LABS: Bilirubin, Urine Neg (Neg); Color, Urine Yellow (P-Yellow); Glucose Qualitative, Urine Neg (Neg); Ketones, Urine Neg (Neg); Leukocyte Esterase, Urine 2+ (Neg); Protein, Urine Neg (Neg); Specific Gravity, Urine 1.010 (1.003-1.022); Urobilinogen, Urine NORM (Normal)
[2025-08-24 13:08] LABS: Red Blood Cells, Urine 0-2 /hpf (0-2)
== END ==
LOC: LAB SHORT 11:23 → LAB 11:23
PROVIDERS: Hospitalist
DX: N17.9 Acute kidney failure, unspecified (principal); I70.1 Atherosclerosis of renal artery
CPT/HCPCS: 81001; 87086

== ENCOUNTER → 2025-10-04 | Outpatient (CLI) | payer MEDICARE | LOC: LAB SHORT 18:01 → LAB 18:01 | DX: N39.0 Urinary tract infection, site not specified (principal) | CPT/HCPCS: 88108 ==

== ENCOUNTER 2025-10-10 12:22 | Emergency (ER) | payer MEDICARE ==
[~2025-10-10] VITALS: Ht 147.3 cm; Wt 42.6 kg
[2025-10-10 14:15] VITALS: BP 168/112
== END 2025-10-10 14:32 | disposition home or self-care (01) ==
LOC: ER 12:22
DX: M25.552 Pain in left hip (principal); M25.512 Pain in left shoulder; F17.210 Nicotine dependence, cigarettes, uncomplicated; I10 Essential (primary) hypertension; Z79.01 Long term (current) use of anticoagulants; Z79.899 Other long term (current) drug therapy
CPT/HCPCS: 70450; 73030; 73502; 99284-25; A9270